=== PATIENT | male | born 1950 | race Caucasian/White ===

== ENCOUNTER 2017-04-18 07:45 | Observation (INO) | payer MEDICARE ==
[2017-04-18] MEDS ORDERED: SODIUM CHLORIDE 0.9% 1,000 ML IV STA (08:11)
[2017-04-18] MEDS ORDERED: NITROGLYCERIN SL TABS 0.4 MG TAB SUBLINGUAL STA ×3 (08:11)
[2017-04-18] MEDS ORDERED: ASPIRIN 81 MG CHEW PO STA (08:11)
--- NOTE | 2017-04-18 08:15 | ED ---
General Adult HPI - General Chief complaint: Chest Pain Stated complaint: Chest Pain Time Seen by Provider: 04/18/17 08:00 Source: patient, RN notes reviewed Mode of arrival: wheelchair Limitations: no limitations - History of Present Illness Initial comments: Patient is a pleasant 67-year-old male sitting to the emergency Department with chest discomfort. Patient has had some nausea vomiting diarrhea for the past couple of days. Patient has pressure in his chest that radiates to the shoulder and jaw and back. Onset was 1 AM. Patient does have associated dyspnea, nausea, and diaphoresis. No history of similar symptoms previously. Discomfort is moderate at this time. - Related Data Home Medications Medication Instructions Recorded Confirmed Ibuprofen [Advil] 200 mg PO Q6HR PRN 04/18/17 04/18/17 Pepto-Bismol Chew Tab 1 tab PO ONCE 04/18/17 04/18/17 Allergies Allergy/AdvReac Type Severity Reaction Status Date / Time povidone-iodine Allergy Anaphylaxis Verified 04/18/17 08:19 [From Betadine] soap [From Betadine] Allergy Anaphylaxis Verified 04/18/17 08:19 Review of Systems ROS Statement: Those systems with pertinent positive or pertinent negative responses have been documented in the HPI. ROS Other: All systems not noted in ROS Statement are negative. Constitutional: Denies: fever Eyes: Denies: eye pain ENT: Denies: ear pain Respiratory: Reports: dyspnea. Denies: cough Cardiovascular: Reports: chest pain Gastrointestinal: Reports: nausea, vomiting, diarrhea. Denies: abdominal pain Genitourinary: Denies: dysuria Musculoskeletal: Denies: back pain Skin: Denies: rash Neurological: Denies: weakness Past Medical History Additional Past Medical History / Comment(s): agent orange complication History of Any Multi-Drug Resistant Organisms: None Reported Past Surgical History: Hernia Repair, Orthopedic Surgery Additional Past Surgical History / Comment(s): throat surgery,eye lid Past Psychological History: No Psychological Hx Reported Smoking Status: Never smoker Past Alcohol Use History: Occasional Past Drug Use History: None Reported General Exam Limitations: no limitations General appearance: alert, in no apparent distress Head exam: Present: atraumatic Eye exam: Present: normal appearance, PERRL ENT exam: Present: normal oropharynx Neck exam: Present: normal inspection Respiratory exam: Present: normal lung sounds bilaterally. Absent: chest wall tenderness Cardiovascular Exam: Present: regular rate, normal rhythm Expanded Peripheral pulses: 2+: Radial (R), Radial (L), Dorsalis Pedis (R), Dorsalis Pedis (L) GI/Abdominal exam: Present: soft. Absent: distended, tenderness, guarding, rebound, rigid, pulsatile mass Extremities exam: Present: normal inspection. Absent: pedal edema, calf tenderness Neurological exam: Present: alert Psychiatric exam: Present: normal affect, normal mood Skin exam: Present: normal color Course Vital Signs 04/18/17 04/18/17 04/18/17 07:48 08:22 08:29 Temperature 97.1 F L Pulse Rate 78 80 87 Respiratory 18 16 18 Rate Blood Pressure 136/86 140/91 134/78 O2 Sat by Pulse 99 97 96 Oximetry 04/18/17 04/18/17 04/18/17 08:34 08:38 09:07 Temperature 97.7 F Pulse Rate 98 86 81 Respiratory 20 18 16 Rate Blood Pressure 98/58 119/72 142/82 O2 Sat by Pulse 95 96 97 Oximetry EKG Findings - EKG Comments: EKG Findings:: Normal sinus rhythm at 80. NE 150. QRS 102. QT 412. QTC 475. Normal axis. Normal QRS. Normal ST-T. Medical Decision Making - Medical Decision Making Patient reevaluated and resting in bed. Patient states discomfort is starting to come back. Patient family updated on results and plan. Case discussed in detail with Dr. Babb, who will admit for hospital call. - Lab Data Result diagrams: 04/18/17 08:14 04/18/17 08:14 Lab Results 04/18/17 04/18/17 04/18/17 Range/Units 08:14 08:14 08:14 WBC 10.9 H (3.8-10.6) k/uL RBC 5.69 (4.30-5.90) m/uL Hgb 18.0 H (13.0-17.5) gm/dL Hct 53.5 H (39.0-53.0) % MCV 94.0 (80.0-100.0) fL MCH 31.7 (25.0-35.0) pg MCHC 33.7 (31.0-37.0) g/dL RDW 14.1 (11.5-15.5) % Plt Count 363 (150-450) k/uL Neutrophils % 79 % Lymphocytes % 13 % Monocytes % 6 % Eosinophils % 1 % Basophils % 0 % Neutrophils # 8.6 H (1.3-7.7) k/uL Lymphocytes # 1.4 (1.0-4.8) k/uL Monocytes # 0.7 (0-1.0) k/uL Eosinophils # 0.1 (0-0.7) k/uL Basophils # 0.0 (0-0.2) k/uL PT (9.0-12.0) sec INR (<1.2) APTT (22.0-30.0) sec D-Dimer (<0.60) mg/L FEU Sodium 138 (137-145) mmol/L Potassium 3.9 (3.5-5.1) mmol/L Chloride 102 (98-107) mmol/L Carbon Dioxide 20 L (22-30) mmol/L Anion Gap 16 mmol/L BUN 17 (9-20) mg/dL Creatinine 0.84 (0.66-1.25) mg/dL Est GFR (MDRD) Af Amer >60 (>60 ml/min/1.73 sqM) Est GFR (MDRD) Non-Af >60 (>60 ml/min/1.73 sqM) Glucose 89 (74-99) mg/dL Calcium 10.2 (8.4-10.2) mg/dL Magnesium 1.7 (1.6-2.3) mg/dL Total Bilirubin 0.9 (0.2-1.3) mg/dL AST 24 (17-59) U/L ALT 40 (21-72) U/L Alkaline Phosphatase 86 (38-126) U/L Total Creatine Kinase 133 (55-170) U/L CK-MB (CK-2) 1.5 (0.0-2.4) ng/mL CK-MB (CK-2) Rel Index 1.1 Troponin I <0.012 (0.000-0.034) ng/mL Total Protein 7.6 (6.3-8.2) g/dL Albumin 4.6 (3.5-5.0) g/dL Amylase 64 (30-110) U/L Lipase 77 (23-300) U/L 04/18/17 Range/Units 08:14 WBC (3.8-10.6) k/uL RBC (4.30-5.90) m/uL Hgb (13.0-17.5) gm/dL Hct (39.0-53.0) % MCV (80.0-100.0) fL MCH (25.0-35.0) pg MCHC (31.0-37.0) g/dL RDW (11.5-15.5) % Plt Count (150-450) k/uL Neutrophils % % Lymphocytes % % Monocytes % % Eosinophils % % Basophils % % Neutrophils # (1.3-7.7) k/uL Lymphocytes # (1.0-4.8) k/uL Monocytes # (0-1.0) k/uL Eosinophils # (0-0.7) k/uL Basophils # (0-0.2) k/uL PT 11.6 (9.0-12.0) sec INR 1.2 H (<1.2) APTT 24.1 (22.0-30.0) sec D-Dimer 0.19 (<0.60) mg/L FEU Sodium (137-145) mmol/L Potassium (3.5-5.1) mmol/L Chloride (98-107) mmol/L Carbon Dioxide (22-30) mmol/L Anion Gap mmol/L BUN (9-20) mg/dL Creatinine (0.66-1.25) mg/dL Est GFR (MDRD) Af Amer (>60 ml/min/1.73 sqM) Est GFR (MDRD) Non-Af (>60 ml/min/1.73 sqM) Glucose (74-99) mg/dL Calcium (8.4-10.2) mg/dL Magnesium (1.6-2.3) mg/dL Total Bilirubin (0.2-1.3) mg/dL AST (17-59) U/L ALT (21-72) U/L Alkaline Phosphatase (38-126) U/L Total Creatine Kinase (55-170) U/L CK-MB (CK-2) (0.0-2.4) ng/mL CK-MB (CK-2) Rel Index Troponin I (0.000-0.034) ng/mL Total Protein (6.3-8.2) g/dL Albumin (3.5-5.0) g/dL Amylase (30-110) U/L Lipase (23-300) U/L - Radiology Data Radiology results: image reviewed (Scarring versus atelectasis left lung base) Critical Care Time Critical Care Time: Yes Total Critical Care Time: 32 Disposition Clinical Impression: Unstable angina pectoris Dis[facility] Referrals: None,Stated [Primary Care Provider] - 1-2 days Decision Time: 10:02
[2017-04-18 08:30] LABS: Basophils % (A) 0 %; CH 33.4; CHCM 35.7; Eosinophils # (A) 0.1 k/uL (0-0.7); Eosinophils % (A) 1 %; HCT 53.5 % (39.0-53.0); HDW 2.77; Luc # (Auto) 0.16; Luc % (Auto) 1; Lymphocytes # (A) 1.4 k/uL (1.0-4.8); Lymphocytes % (A) 13 %; MCH 31.7 pg (25.0-35.0); MCHC 33.7 g/dL (31.0-37.0); Monocytes # (A) 0.7 k/uL (0-1.0); Monocytes % (A) 6 %; Neutrophils # (A) 8.6 k/uL (1.3-7.7); Neutrophils % (A) 79 %; RBC 5.69 m/uL (4.30-5.90); RDW 14.1 % (11.5-15.5); WBC 10.9 k/uL (3.8-10.6); WBC (Perox) 11.39
[2017-04-18 08:46] LABS: ALT 40 U/L (21-72); AST 24 U/L (17-59); Alkaline Phosphatase 86 U/L (38-126); Amylase 64 U/L (30-110); Anion Gap 16 mmol/L; Blood Urea Nitrogen 17 mg/dL (9-20); Calcium 10.2 mg/dL (8.4-10.2); Carbon Dioxide 20 mmol/L (22-30); Chloride 102 mmol/L (98-107); Glucose 89 mg/dL (74-99); Magnesium 1.7 mg/dL (1.6-2.3); Non-African American GFR(MDRD) >60 (>60 ml/min/1.73 sqM); Potassium 3.9 mmol/L (3.5-5.1); Sodium 138 mmol/L (137-145); Total Bilirubin 0.9 mg/dL (0.2-1.3); Total Protein 7.6 g/dL (6.3-8.2)
[2017-04-18 08:49] LABS: INR 1.2 (<1.2); Partial Thromboplastin Time 24.1 sec (22.0-30.0); Prothrombin Time 11.6 sec (9.0-12.0)
--- NOTE | 2017-04-18 08:56 | XR ---
EXAMINATION TYPE: XR chest 2V DATE OF EXAM: 04/18/2017 HISTORY: Chest Pain. REFERENCE: NONE. FINDINGS: There is minimal scarring or atelectasis at the left lung base. The lungs are otherwise cheri ar. Pleural spaces are clear. The heart is not enlarged. IMPRESSION: SCARRING VERSUS ATELECTASIS, LEFT LUNG BASE.
[2017-04-18 08:59] LABS: Creatine Kinase 133 U/L (55-170)
[2017-04-18 09:10] LABS: Creatine Kinase MB 1.5 ng/mL (0.0-2.4); Troponin I <0.012 ng/mL (0.000-0.034)
[2017-04-18] MEDS ORDERED: MORPHINE SULFATE 4 MG/ML SYRINGE IV STA (10:01)
[2017-04-18] MEDS ORDERED: NITROGLYCERIN SL TABS 0.4 MG TAB SUBLINGUAL PRN (10:03)
[2017-04-18] MEDS ORDERED: HEPARIN SODIUM,PORCINE 5,000 UNIT/ML 1 ML VIAL IV ONE (10:03)
[2017-04-18] MEDS ORDERED: HEPARIN SODIUM,PORCINE 5,000 UNIT/ML 1 ML VIAL IV PRN (10:03)
[2017-04-18] MEDS ORDERED: ONDANSETRON 4 MG/2 ML VIAL IVP STA (10:13)
[2017-04-18] MEDS: HEPARIN SODIUM,PORCINE/D5W PMX 25,000 UNIT in DEXTROSE/WATER 1 500ML.BAG IV SCH (10:32)
[2017-04-18] MEDS: NITROGLYCERIN OINT 1 INCH/GM PACKET TOPICAL SCH ×3 (13:54→23:44)
[2017-04-18] MEDS ORDERED: MORPHINE SULFATE 4 MG/ML SYRINGE IVP PRN (14:19)
[2017-04-18 15:05] LABS: Creatine Kinase 108 U/L (55-170)
[2017-04-18 15:15] LABS: Creatine Kinase MB 1.1 ng/mL (0.0-2.4); Troponin I <0.012 ng/mL (0.000-0.034)
[2017-04-18] MEDS ORDERED: ACETAMINOPHEN TAB 325 MG TAB PO PRN (17:48)
[2017-04-18 18:05] LABS: Amorphous Sediment,Urine Rare /hpf; Appearance,Urine Clear (Clear); Bilirubin,Urine Negative (Negative); Glucose,Urine (UA) Negative (Negative); Ketones,Urine 3+ (Negative); Leukocyte Esterase,Urine Negative (Negative); Mucus,Urine Few /hpf; Nitrite,Urine Negative (Negative); PH, Urine 5.5 (5.0-8.0); Particle Count 3604; Protein,Urine 1+ (Negative); RBC,Urine 1 /hpf (0-5); Specific Gravity,Urine 1.024 (1.001-1.035); Squamous Epithelial Cell,Urine 3 /hpf (0-4); UA Billing (MACRO vs. MICRO) MICRO; Urobilinogen,Urine <2.0 mg/dL (<2.0); WBC,Urine 1 /hpf (0-5)
[2017-04-18] MEDS ORDERED: CYCLOBENZAPRINE 10 MG TAB PO PRN (19:30)
[2017-04-18] MEDS ORDERED: ZOLPIDEM 5 MG TAB PO PRN (19:31)
[2017-04-18] MEDS ORDERED: HYDROmorphone 1 MG/ML 1 ML SYRINGE IVP PRN ×2 (19:31→23:20)
[2017-04-18 21:09] LABS: Creatine Kinase 144 U/L (55-170)
[2017-04-18 21:21] LABS: Creatine Kinase MB 1.5 ng/mL (0.0-2.4); Troponin I <0.012 ng/mL (0.000-0.034)
[2017-04-18] MEDS: HYDROcodone/APAP 5-325MG 1 EACH TAB PO PRN (21:58)
[2017-04-18] MEDS ORDERED: RX INFO: IV CONTRAST WAS GIVEN 1 EACH MISC MISCELLANE PRN (23:15)
[2017-04-18] MEDS ORDERED: diphenhydrAMINE 50 MG/ML 1 ML VIAL IVP STA (23:19)
[2017-04-18] MEDS ORDERED: FAMOTIDINE 20 MG/2 ML VIAL IV STA (23:19)
[2017-04-18] MEDS ORDERED: methylPREDNISolone SOD SUCCI 125 MG/2 ML VIAL IV STA (23:19)
[2017-04-18] MEDS ORDERED: HYDROmorphone 2 MG/ML 1 ML SYRINGE IVP PRN (23:20)
--- NOTE | 2017-04-19 00:53 | CT ---
EXAM: CT Chest With Intravenous Contrast CLINICAL HISTORY: Back and chest pain TECHNIQUE: Axial computed tomography images of the chest with intravenous contrast. CTDI is 19.00 mGy and DLP is 705.90 mGy-cm. This CT exam was performed using one or more of the following dose reduction techniques: automated exposure control, adjustment of the mA and/or kV according to patient size, and/or use of iterative reconstruction technique. CONTRAST: 100 mL of Omni 300 administered intravenously. COMPARISON: None FINDINGS: Lungs: Low lung volumes with hypoventilatory changes. Bilateral lower lobe dependent subsegmental atelectasis. No acute parenchymal lung disease. Pleural space: Unremarkable. No pneumothorax. No significant effusion. Heart: Unremarkable. No cardiomegaly. No significant pericardial effusion. Thyroid: There are 2 tiny cystic lesions within the right lobe of the thyroid gland. Bones/joints: Severe C7-T1 disc degeneration. No acute fracture. No dislocation. Soft tissues: Unremarkable. Vasculature: Unremarkable. No thoracic aortic aneurysm. Lymph nodes: Unremarkable. No enlarged lymph nodes. IMPRESSION: Unremarkable CT scan of the chest. No acute parenchymal lung abnormalities. No abnormalities found to explain chest pain. 2 tiny cystic lesions within the right lobe of the thyroid gland. Nonemergent ultrasound of the thyroid gland recommended for further evaluation. EXAM: CT Abdomen and Pelvis With Intravenous Contrast CLINICAL HISTORY: Back and chest pain TECHNIQUE: Axial computed tomography images of the abdomen and pelvis with intravenous contrast. CTDI is 16.90 mGy and DLP is 1203.10 mGy-cm. This CT exam was performed using one or more of the following dose reduction techniques: automated exposure control, adjustment of the mA and/or kV according to patient size, and/or use of iterative reconstruction technique. CONTRAST: 100 mL of Omni 300 administered intravenously. COMPARISON: None FINDINGS: Lower thorax: No acute findings. ABDOMEN: Liver: 1.7 cm low-density lesion within the right hepatic lobe, with irregular margins. This could represent a cyst or hemangioma. Gallbladder and bile ducts: Unremarkable. No calcified stones. No ductal dilation. Pancreas: Unremarkable. No mass. No ductal dilation. Spleen: Unremarkable. No splenomegaly. Adrenals: Unremarkable. No mass. Kidneys and ureters: Left upper pole peripelvic renal cyst measuring 3. 3 cm. Right lower pole exophytic renal cyst measuring 1.4 cm. Bilaterally, there is no hydronephrosis. Stomach and bowel: Descending and sigmoid colon diverticulosis. Mild inflammation around a proximal sigmoid diverticulum, compatible with mild, acute diverticulitis. No diverticular abscess or perforation. No obstruction. Appendix: No findings to suggest acute appendicitis. PELVIS: Bladder: Unremarkable. No mass. Reproductive: Unremarkable as visualized. ABDOMEN and PELVIS: Intraperitoneal space: Unremarkable. No free air. No significant fluid collection. Bones/joints: Minimal retrolisthesis of L2 on L3 with moderate disc degeneration. No acute fracture. No dislocation. Soft tissues: Unremarkable. Vasculature: Unremarkable. No abdominal aortic aneurysm. Lymph nodes: Unremarkable. No enlarged lymph nodes. IMPRESSION: 1. Mild, acute sigmoid diverticulitis. No diverticular abscess or perforation. 2. A 1.7 cm right hepatic cyst versus hemangioma. 3. Left upper pole 3.3 cm peripelvic renal cyst. 1.4 cm right lower pole exophytic renal cyst.
[2017-04-19] MEDS ORDERED: SODIUM CHLORIDE 0.9% 1,000 ML IV SCH (01:00)
[2017-04-19] MEDS: HYDROcodone/APAP 5-325MG 1 EACH TAB PO PRN (02:48)
[2017-04-19] MEDS: NITROGLYCERIN OINT 1 INCH/GM PACKET TOPICAL SCH ×2 (05:54→13:18)
[2017-04-19 07:10] LABS: Mean Platelet Volume 7.4
[2017-04-19 07:15] LABS: Cholesterol 102 mg/dL (<200); HDL Cholesterol 38 mg/dL (40-60)
[2017-04-19 07:34] VITALS: RESP 17
--- NOTE | 2017-04-19 08:17 | CONS ---
Demond Guardado is a 67 year old gentleman, resident of [place], visiting family here. For the last two days, he has been having nausea, vomiting, diarrhea and felt dehydrated, exhausted and this morning had some discomfort in the chest, very atypical, nondescript. There is some tenderness in the anterior chest wall. With these symptoms, he came into the emergency room, he has been placed on heparin and hospitalized. Initial troponin is normal. EKG is unremarkable. His diarrhea has resolved. Nausea seems to have improved. PAST MEDICAL HISTORY: Unremarkable for any hypertension, diabetes, myocardial infarction or CVA. Review of systems unremarkable other than the above mentioned facts. On examination, blood pressure is 120/70. Pulse rate is about 78 per minute. There are some orthostatic changes suggestive of hypovolemia. HEENT: Unremarkable. Fundus was not examined by me. Neck is supple. There is no JVD. I do not hear a carotid bruit. Heart exam reveals S1, S2 heard normally. No rub, murmur or gallop. Lungs are clear. Abdomen is soft, nontender. Lower extremities revealed normal pulses. No edema. Central nervous system grossly no focal deficits. EKG revealed sinus mechanism, no acute changes. IMPRESSION: 1. Atypical chest pain. 2. Nausea, vomiting, diarrhea, probably some gastroenteritis. 3. No major risk factors for coronary artery disease. RECOMMENDATIONS: The pain appears to be atypical. The patient is dehydrated. We will hydrate him, perform serial troponins and EKGs and based on this, I will make further recommendations. Discussed my thoughts in detail with the patient and . Thank you very much for the consultation. BIB
[2017-04-19] MEDS ORDERED: ASPIRIN 325 MG TAB PO SCH (09:00)
--- NOTE | 2017-04-19 10:49 | ECHOF ---
Referral Reason:chest pain MEASUREMENTS -------- HEIGHT: 182.9 cm WEIGHT: 97.5 kg BP: RVIDd: 2.7 cm (< 3.3) IVSd: 1.3 cm (0.6 - 1.1) LVIDd: 4.6 cm (3.9 - 5.3) LVPWd: 1.2 cm (0.6 - 1.1) IVSs: 1.7 cm LVIDs: 3.3 cm LVPWs: 1.5 cm LA Diam: 3.7 cm (2.7 - 3.8) LAESV Index (A-L): 24.68 ml/m Ao Diam: 3.4 cm (2.0 - 3.7) AV Cusp: 2.3 cm (1.5 - 2.6) LA Diam: 4.1 cm (2.7 - 3.8) MV EXCURSION: 19.132 mm (> 18.000) MV EF SLOPE: 91 mm/s (70 - 150) EPSS: 0.9 cm MV E Yossi: 0.46 m/s MV DecT: 158 ms MV A Yossi: 0.65 m/s MV E/A Ratio: 0.70 FINDINGS -------- Sinus rhythm. This was a technically adequate study. The left ventricular size is normal. There is mild concentric left ventricular hypertrophy. Overall left ventricular systolic function is normal with, an EF between 55 - 60 %. The right ventricle is normal in size. Normal LA size by volume 22+/-6 ml/m2. The right atrial size is normal. The aortic valve is trileaflet and appears structurally normal. There is no evidence of aortic regurgitation. The mitral valve leaflets are mildly thickened. Mild mitral regurgitation is present. Mild tricuspid regurgitation present. There is no evidence of pulmonary hypertension. The right ventricular systolic pressure, as measured by Doppler, is {RVSP}. There is no pulmonic regurgitation present. The aortic root size is normal. There is no pericardial effusion. CONCLUSIONS -------- 1. This was a technically adequate study. 2. There is no pulmonic regurgitation present. 3. There is no pericardial effusion. 4. There is mild concentric left ventricular hypertrophy. 5. Overall left ventricular systolic function is normal with, an EF between 55 - 60 %. 6. Normal LA size by volume 22+/-6 ml/m2. 7. The aortic valve is trileaflet and appears structurally normal. 8. The mitral valve leaflets are mildly thickened. 9. Mild mitral regurgitation is present. 10. Mild tricuspid regurgitation present. 11. There is no evidence of pulmonary hypertension. [employer] SUPERVISOR: Deborah Vazquez RDCS
[2017-04-19 11:24] VITALS: BP 108/65; PULSE 87; TEMP 97.6
--- NOTE | 2017-04-19 12:51 | HP ---
CHIEF COMPLAINT: 67 year old white male with chest pain. HISTORY OF PRESENT ILLNESS: This 67 year old white male with some chest discomfort, nausea, vomiting, diarrhea, pain was extreme radiating to shoulder joint and back. States he had a cardiac workup two to three years ago which was normal. He has history of agent orange exposure where he has severe muscle spasms and severe back pain that intermittently comes and goes over time. He is complaining of severe pain at this time. He has ibuprofen and Pepto Bismol at home. ALLERGIES: IODINE FROM BETADINE. 14 point review of systems negative except for mentioned in HPI. 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 No smoking, no alcohol. 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 PHYSICAL EXAM: Vital signs stable. Afebrile. Cardiovascular: S1, S2. Lungs clear. GI: Soft. Musculoskeletal: Tender to palpation thoracic lumbar spine. Spinal muscles, hematological negative Homans. Vascular: Lumbar dorsalis pedis, posterior tibial and radial pulses. Ophthalmological: Pupils equal, round and reactive to light and accommodation. Neurological: Alert and oriented times three. Blood pressure 130s to 140s over 80s to 90s. O2 96 to 99%. Temp 97.1. Respiratory rate 16-18, ( ). Skin: Normal color. White count 10.9, hemoglobin 18, hematocrit 53. Troponins negative. ASSESSMENT: As stated above, angina pectoris, atypical, severe back pain, not much response to pain medicines. We will do a CT scan of the abdomen and chest. Muscle relaxers will be given. Morphine will be discontinued. It is not working. We will start Dilaudid. MTDD
[2017-04-19] MEDS: HEPARIN SODIUM,PORCINE/D5W PMX 25,000 UNIT in DEXTROSE/WATER 1 500ML.BAG IV SCH (13:18)
--- NOTE | 2017-04-19 14:41 | PN ---
Mr. Guardado is doing well, has no further chest pain. His vital signs are stable. His dehydration has resolved. He has no orthostatic changes. He is eating is food normally. Vital signs are stable, S1, S2, heard normally. Lungs are clear. Abdomen and lower extremities are unchanged. Plan is to increase activity and discharge him and he can be followed up by his primary care physician and he is planning on returning to [place]. He does not require any follow up here and will have further testing in [place]. BIB
--- NOTE | 2017-04-24 12:11 | PN ---
SUBJECTIVE: A 67-year-old white male admitted with acute diverticulitis. Neurology has ordered a MRI of the cervical and lumbar spine which are not back at this time. The nurse last night gave him and overdose of Dilaudid which caused respiratory distress, improved with Narcan x2. CARDIOVASCULAR: S1, S2. Lungs are clear. GI is soft. MUSCULOSKELETAL: Multiple tender points over the cervical and lumbar spinal muscles and thoracic spine muscles. ASSESSMENT: 1. Possible fibromyalgia. 2. Cervical and lumbar disc disease. 3. Acute diverticulitis. 4. Obesity. 5. Agent orange exposure. 6. Multiple medical conditions. PLAN: Dilaudid is discontinued due to respiratory distress caused by nurse. Due to diverticulitis, would advance the diet as tolerated. Neurologic workup per Dr. Pretty is pending. Please see further orders. MTDD
== END 2017-04-19 14:40 | disposition home or self-care (01) ==
LOC: EC 07:45 → 3OBS 10:04
PROVIDERS: ADMIT Family Medicine; ATTEND Family Medicine
DX: I20.9 Angina pectoris, unspecified (principal); M54.9 Dorsalgia, unspecified; R07.9 Chest pain, unspecified; R11.2 Nausea with vomiting, unspecified; M62.838 Other muscle spasm; K57.92 Diverticulitis of intestine, part unspecified, without perforation or abscess without bleeding; R06.00 Dyspnea, unspecified; M51.9 Unspecified thoracic, thoracolumbar and lumbosacral intervertebral disc disorder; E66.9 Obesity, unspecified
CPT/HCPCS: 96376 ×4; 96365 ×2; 99291 ×2; 96361 ×3; 96366; 96375; 36415; 93005; 93306; 85379; 80061; 80053; 82150; 82550; 82553; 83690; 83735; 84484; 85025; 85049; 85610; 85730 ×2; 81001; 71020; 71260; 74177; G0378 ×2; J2270; J1170 ×2; J1200; J1644 ×2; J2930; J2405; Q9967

== ENCOUNTER 2017-04-20 18:18 | Inpatient (IN) | payer MEDICARE ==
[2017-04-20] MEDS ORDERED: SODIUM CHLORIDE 0.9% 1,000 ML IV STA (19:04)
[2017-04-20] MEDS ORDERED: metroNIDAZOLE-NS PMX 500 MG in SALINE 1 100ML.BAG IVPB STA (19:04)
[2017-04-20] MEDS ORDERED: LEVOFLOXACIN 500MG-D5W PMX 500 MG in DEXTROSE/WATER 1 100ML.BAG IVPB STA (19:04)
[2017-04-20 19:40] LABS: Basophils # (A) 0.1 k/uL (0-0.2); Basophils % (A) 0 %; CH 32.8; CHCM 35.7; Eosinophils # (A) 0.1 k/uL (0-0.7); Eosinophils % (A) 1 %; HCT 48.4 % (39.0-53.0); HDW 2.84; HGB 16.9 gm/dL (13.0-17.5); Luc # (Auto) 0.19; Luc % (Auto) 2; Lymphocytes # (A) 1.9 k/uL (1.0-4.8); Lymphocytes % (A) 16 %; MCH 32.2 pg (25.0-35.0); MCHC 34.9 g/dL (31.0-37.0); MCV 92.4 fL (80.0-100.0); Mean Platelet Volume 7.4; Monocytes # (A) 0.8 k/uL (0-1.0); Monocytes % (A) 7 %; Neutrophils # (A) 8.5 k/uL (1.3-7.7); Neutrophils % (A) 74 %; RBC 5.24 m/uL (4.30-5.90); RDW 13.9 % (11.5-15.5); WBC 11.6 k/uL (3.8-10.6); WBC (Perox) 11.71
[2017-04-20 19:49] LABS: Appearance,Urine Clear (Clear); Bilirubin,Urine Negative (Negative); Glucose,Urine (UA) Negative (Negative); Ketones,Urine 1+ (Negative); Leukocyte Esterase,Urine Negative (Negative); Nitrite,Urine Negative (Negative); PH, Urine 5.5 (5.0-8.0); Protein,Urine Trace (Negative); Specific Gravity,Urine 1.018 (1.001-1.035); UA Billing (MACRO vs. MICRO) CHEM; Urobilinogen,Urine <2.0 mg/dL (<2.0)
[2017-04-20 19:51] LABS: ALT 93 U/L (21-72); AST 72 U/L (17-59); Alkaline Phosphatase 98 U/L (38-126); Anion Gap 14 mmol/L; Blood Urea Nitrogen 20 mg/dL (9-20); Calcium 9.9 mg/dL (8.4-10.2); Carbon Dioxide 24 mmol/L (22-30); Chloride 102 mmol/L (98-107); Glucose 82 mg/dL (74-99); Non-African American GFR(MDRD) >60 (>60 ml/min/1.73 sqM); Potassium 3.9 mmol/L (3.5-5.1); Sodium 140 mmol/L (137-145); Total Bilirubin 0.7 mg/dL (0.2-1.3); Total Protein 7.4 g/dL (6.3-8.2)
[2017-04-20] MEDS ORDERED: ACETAMINOPHEN TAB 325 MG TAB PO PRN (20:02)
[2017-04-20] MEDS ORDERED: NALOXONE 0.4 MG/ML 1 ML VIAL IV PRN (20:02)
--- NOTE | 2017-04-20 20:02 | ED ---
General Adult HPI - General Chief complaint: Back Pain/Injury Stated complaint: back pain Time Seen by Provider: 04/20/17 18:31 Source: patient, EMS, RN notes reviewed, old records reviewed Mode of arrival: EMS Limitations: no limitations - History of Present Illness Initial comments: She is 67-year-old, who presents emergency room today by EMS, the patient does have multiple complaints. He does admit that he was recently seen discussed discharged home yesterday for diverticulitis. He states he was admitted for chest pain and diverticulitis. He states he was having ultrasound echocardiogram on his heart and when he rolled over felt a pop in his back yesterday approximately 3:30 in the afternoon. Patient does admit that since that time he's been having increased pain in both the upper and lower extremities. He admits to numbness and tingling both areas. He denies any bowel or bladder incontinence or retention. Denies any saddle anesthesia. Does admit that he's been having increased back pain since that time. Patient does admit that he try to go see a chiropractor today. He states he is advised come back here to the emergency room for further evaluation. Also missed some blurry vision at times. States some numbness tingling to the upper extremities , lower extremities and around his lips. He states still having some pain to the lower abdomen. Patient denies any recent fever, chills, shortness of breath , chest pain, dysuria or hematuria, constipation or diarrhea, headaches. - Related Data Home Medications Medication Instructions Recorded Confirmed Ibuprofen [Advil] 400 mg PO Q6HR PRN 04/18/17 04/20/17 Allergies Allergy/AdvReac Type Severity Reaction Status Date / Time povidone-iodine Allergy Anaphylaxis Verified 04/20/17 19:13 [From Betadine] soap [From Betadine] Allergy Anaphylaxis Verified 04/20/17 19:13 Review of Systems ROS Statement: Those systems with pertinent positive or pertinent negative responses have been documented in the HPI. ROS Other: All systems not noted in ROS Statement are negative. Past Medical History Past Medical History: Asthma, Fibromyalgia, GERD/Reflux, Hyperlipidemia, Osteoarthritis (OA), Pneumonia Additional Past Medical History / Comment(s): agent orange exposure/ complications, connective tissue disease-undifferentiated, leg weakness, neuropathy bilateral feet, arthritis multiple joints, stomach inflamation, cholesterol alittle elevated but not on rx for it yet-watching diet, fibromyalgia, muscle spasms, colon polyps-benign, asthma-remote, History of Any Multi-Drug Resistant Organisms: None Reported Past Surgical History: Hernia Repair, Orthopedic Surgery Additional Past Surgical History / Comment(s): Surgery for Schatzki ring 3 weeks ago, EGD/colonoscopy with benign polyps removed, vein bundle in back of throat removed, bilateral blepharoplasty, bilateral inguinal hernia repairs, L elbow ulnar nerve moved and bone scraped, L wrist carpal tunnel release, surgery for dupuytrens L hand, 2004 or 2005 cardiac cath-normal in [place], Past Anesthesia/Blood Transfusion Reactions: Postoperative Nausea & Vomiting ( PONV) Additional Past Anesthesia/Blood Transfusion Reaction / Comment(s): PONV after blepharoplasty. Past Psychological History: No Psychological Hx Reported Smoking Status: Former smoker - Past Family History Father Family Medical History: Cancer, Musculoskeletal Disorder, Neurologic Disorder Additional Family Medical History / Comment(s): Father had parkinson's disease. He at the age of 72 yrs from cancer in his bones. Mother Family Medical History: Cancer Additional Family Medical History / Comment(s): Mother of pancreatic cancer at the age of 67 or 68yrs. General Exam - General Exam Comments Initial Comments: General: The patient is awake and alert, in no distress, and does not appear acutely ill. Eye: Pupils are equal, round and reactive to light, extra-ocular movements are intact. No nystagmus. There is normal conjunctiva bilaterally. No signs of icterus. Ears, nose, mouth and throat: There are moist mucous membranes and no oral lesions. Neck: The neck is supple, there is no tenderness or JVD. Cardiovascular: There is a regular rate and rhythm. No murmur, rub or gallop is appreciated. Respiratory: Lungs are clear to auscultation, respirations are non-labored, breath sounds are equal. No wheezes, stridor, rales, or rhonchi. Gastrointestinal: Soft, non-distended, non-tender abdomen without masses or organomegaly noted. There is no rebound or guarding present. No CVA tenderness. Bowel sounds are unremarkable. Musculoskeletal: Normal ROM, no tenderness. Strength 5/5. Sensation intact. Pulses equal bilaterally 2+. Neurological: A&O x 3. CN II-XII intact, There are no obvious motor or sensory deficits. Coordination appears grossly intact. Speech is normal. Skin: Skin is warm and dry and no rashes or lesions are noted. Psychiatric: Cooperative, appropriate mood & affect, normal judgment. : Normal rectal tone Limitations: no limitations Course Vital Signs 04/20/17 18:28 Temperature 97 F L Pulse Rate 85 Respiratory 18 Rate Blood Pressure 132/88 O2 Sat by Pulse 97 Oximetry Medical Decision Making - Lab Data Result diagrams: 04/20/17 19:23 Lab Results 04/20/17 04/20/17 Range/Units 19:23 19:30 WBC 11.6 H (3.8-10.6) k/uL RBC 5.24 (4.30-5.90) m/uL Hgb 16.9 (13.0-17.5) gm/dL Hct 48.4 (39.0-53.0) % MCV 92.4 (80.0-100.0) fL MCH 32.2 (25.0-35.0) pg MCHC 34.9 (31.0-37.0) g/dL RDW 13.9 (11.5-15.5) % Plt Count 348 (150-450) k/uL Neutrophils % 74 % Lymphocytes % 16 % Monocytes % 7 % Eosinophils % 1 % Basophils % 0 % Neutrophils # 8.5 H (1.3-7.7) k/uL Lymphocytes # 1.9 (1.0-4.8) k/uL Monocytes # 0.8 (0-1.0) k/uL Eosinophils # 0.1 (0-0.7) k/uL Basophils # 0.1 (0-0.2) k/uL Urine Color Yellow Urine Appearance Clear (Clear) Urine pH 5.5 (5.0-8.0) Ur Specific [place] 1.018 (1.001-1.035) Urine Protein Trace H (Negative) Urine Glucose (UA) Negative (Negative) Urine Ketones 1+ H (Negative) Urine Blood Negative (Negative) Urine Nitrite Negative (Negative) Urine Bilirubin Negative (Negative) Urine Urobilinogen <2.0 (<2.0) mg/dL Ur Leukocyte Esterase Negative (Negative) Disposition Clinical Impression: Diverticulitis, Intractable back pain, Paresthesia Disposition: ADMITTED IP TO THIS [facility] Condition: Stable Referrals: Nonstaff,Physician [Primary Care Provider] - 1-2 days Time of Disposition: 20:02
--- NOTE | 2017-04-20 20:29 | CT ---
EXAMINATION TYPE: CT brain simran romo DATE OF EXAM: 04/20/2017 COMPARISON: NONE HISTORY: Lower neck pain and headache with finger and arm numbness CT DLP: 2180 mGycm Automated exposure control for dose reduction was used. TECHNIQUE: CT scan of the head and cervical spine are performed without contrast. FINDINGS: There is mild cerebral cortical atrophy. There is no mass effect nor midline shift. There is no sign of intracranial hemorrhage. The calvarium is intact. Cervical vertebra have normal alignment. There is moderate posterior endplate spur formation and calc ification at its levels from C4 to C7. There is thickening of the posterior longitudinal ligament. Th ere is degenerative disc space narrowing from C4 to T1. Facet joints are intact. Skull base is intact . I see no bony destructive process. IMPRESSION: Mild atrophy. No acute intracranial abnormality. Multilevel spondylosis. No fracture. 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 There is more extensive calcification on the right side. No fracture.
[2017-04-20] MEDS: HYDROcodone/APAP 5-325MG 1 EACH TAB PO PRN (20:56)
[2017-04-20] MEDS: HYDROmorphone 1 MG/ML 1 ML SYRINGE IV PRN (22:44)
[2017-04-20] MEDS: FAMOTIDINE 20 MG TAB PO SCH (22:45)
[2017-04-20] MEDS: MELATONIN 3 MG TABLET PO PRN (23:14)
[2017-04-21] MEDS: CYCLOBENZAPRINE 10 MG TAB PO PRN ×2 (00:37→22:46)
[2017-04-21] MEDS: HYDROcodone/APAP 5-325MG 1 EACH TAB PO PRN ×3 (01:07→14:58)
[2017-04-21] MEDS: metroNIDAZOLE-NS PMX 500 MG in SALINE 1 100ML.BAG IVPB SCH ×3 (01:24→16:07)
[2017-04-21] MEDS: HYDROmorphone 1 MG/ML 1 ML SYRINGE IV PRN ×5 (02:02→20:25)
[2017-04-21] MEDS: LORazepam 2 MG/ML SYRINGE IV PRN (03:18)
[2017-04-21] MEDS: FAMOTIDINE 20 MG TAB PO SCH ×2 (07:36→20:26)
[2017-04-21 09:09] VITALS: BMI 29.7
[2017-04-21 09:22] LABS: Basophils % (A) 0 %; CH 33.3; CHCM 34.9; Eosinophils % (A) 0 %; HCT 45.3 % (39.0-53.0); HDW 2.79; HGB 15.4 gm/dL (13.0-17.5); Luc # (Auto) 0.15; Luc % (Auto) 2; Lymphocytes # (A) 0.9 k/uL (1.0-4.8); Lymphocytes % (A) 9 %; MCH 32.7 pg (25.0-35.0); MCHC 34.1 g/dL (31.0-37.0); Mean Platelet Volume 8.1; Monocytes # (A) 0.7 k/uL (0-1.0); Monocytes % (A) 7 %; Neutrophils # (A) 8.5 k/uL (1.3-7.7); Neutrophils % (A) 82 %; RBC 4.72 m/uL (4.30-5.90); RDW 14.5 % (11.5-15.5); WBC 10.3 k/uL (3.8-10.6); WBC (Perox) 9.65
[2017-04-21 09:34] LABS: ALT 76 U/L (21-72); AST 45 U/L (17-59); Alkaline Phosphatase 81 U/L (38-126); Anion Gap 10 mmol/L; Blood Urea Nitrogen 14 mg/dL (9-20); Calcium 8.9 mg/dL (8.4-10.2); Carbon Dioxide 25 mmol/L (22-30); Chloride 100 mmol/L (98-107); Glucose 104 mg/dL (74-99); Non-African American GFR(MDRD) >60 (>60 ml/min/1.73 sqM); Sodium 135 mmol/L (137-145); Total Bilirubin 0.7 mg/dL (0.2-1.3); Total Protein 6.5 g/dL (6.3-8.2)
--- NOTE | 2017-04-21 14:12 | MR ---
EXAMINATION TYPE: MR brain wo con DATE OF EXAM: 04/21/2017 2:05 PM COMPARISON: NONE HISTORY: intractable back pain, paresthesia with arm and leg pain FINDINGS: The ventricles, basal cisterns and sulci overlying the cerebral convexities are mildly enlarged. There is evidence of mild periventricular white matter ischemic demyelination. Remote deep white matter insults are also noted. No acute edema is seen on diffusion weighted imaging. There is no evidence for midline shift or mass effect. Acute intracranial hemorrhage or extra-axial collection is not evident. The paranasal sinuses and mastoid air cells are well-aerated. IMPRESSION: Age-related atrophic and chronic small vessel ischemic change. No acute intracranial process at this time.
--- NOTE | 2017-04-21 15:34 | P.CNNES ---
History of Present Illness Consult date: 04/21/17 Reason for Consult: Patient with intractable back pain. History of Present Illness: This patient is a 67-year-old right-handed white male who was admitted to hospital today with symptoms of severe intractable back pain. Patient states he was just discharged from the hospital last Monday. He was in the hospital for evaluation of abdominal pain. He was found to have evidence of diverticulitis. Patient states that on T2 stay of this past week he was undergoing an echocardiogram. Apparently he was on a table and the attendant help desk technician rotated him into position to do the echocardiogram and he heard a snap in his back. He complained of severe pain following this maneuver. Apparently he was discharged from the hospital and was given some pain medication. The patient states that he has been having worsening pain mostly in the mid thoracic region of the spine where he heard the snap and pop occur during his echocardiogram. He has been experiencing increasing symptoms of weakness in his shoulder muscles as well as his leg muscles. He complains of paresthesias in both arms and legs. He also states that his right shoulder is quite weak and he feels there may be some injury to the right shoulder as well. Apparently after discharge from the hospital earlier this week he saw his chiropractor who suggested he should be rechecked for all of his symptoms. The patient does have multiple medical complaints. He states he has numbness in the arms and feet. He complains of neck pain radiating into his upper arms and shoulders. He describes paresthesias in both his fingertips and in his bottoms of his feet. He is originally from [place] and is only visiting family members locally. He states he did not have these symptoms prior to Monday when he heard the back going out. Orthopedic spine surgery has been consulted to further evaluate the patient. In the emergency room he was seen by Dr. Ni in his computed tomography scan of the brain and cervical spine was completed. CAT scan of the brain revealed mild atrophy with no other acute abnormality. He also had CT of the cervical spine which revealed multiple level spondylosis. There was perforation and spinal stenosis from C4 through C7. No acute fracture was seen. We are recommending orthopedic spine surgery to further evaluate the patient. We are recommending an MRI of the thoracic and cervical spine to be done. Also recommend MRI of the brain to rule out demyelinating disease. This patient has multiple complex medical symptoms and complaints at this time. We will await further recommendations from multiple other specialists regarding his current workup. His overall prognosis at this time remains guarded. Neurology is now been consulted for further evaluation and recommendations. Review of Systems Constitutional: Denies chills, Denies fever Eyes: denies blurred vision, denies pain Ears, nose, mouth and throat: Denies headache, Denies sore throat Cardiovascular: Denies chest pain, Denies shortness of breath Respiratory: Denies cough Gastrointestinal: Denies abdominal pain, Denies diarrhea, Denies nausea, Denies vomiting Musculoskeletal: Denies myalgias Integumentary: Denies pruritus, Denies rash Neurological: Denies numbness, Denies weakness Psychiatric: Denies anxiety, Denies depression Endocrine: Denies fatigue, Denies weight change Past Medical History Past Medical History: Asthma, Fibromyalgia, GERD/Reflux, Hyperlipidemia, Osteoarthritis (OA), Pneumonia Additional Past Medical History / Comment(s): agent orange exposure/ complications, connective tissue disease-undifferentiated, leg weakness, neuropathy bilateral feet, arthritis multiple joints, stomach inflamation, cholesterol alittle elevated but not on rx for it yet-watching diet, fibromyalgia, muscle spasms, colon polyps-benign, asthma-remote, History of Any Multi-Drug Resistant Organisms: None Reported Past Surgical History: Hernia Repair, Orthopedic Surgery Additional Past Surgical History / Comment(s): Surgery for Schatzki ring 3 weeks ago, EGD/colonoscopy with benign polyps removed, vein bundle in back of throat removed, bilateral blepharoplasty, bilateral inguinal hernia repairs, L elbow ulnar nerve moved and bone scraped, L wrist carpal tunnel release, surgery for dupuytrens L hand, 2004 or 2005 cardiac cath-normal in [place], Past Anesthesia/Blood Transfusion Reactions: Postoperative Nausea & Vomiting ( PONV) Additional Past Anesthesia/Blood Transfusion Reaction / Comment(s): PONV after blepharoplasty. Past Psychological History: No Psychological Hx Reported Additional Psychological History / Comment(s): Pt resides in [place]. He flew to [place] on Saturday, April 15, 2017 to visit family. He is a [place] . He served in the [employer]. He is independent. He occasionally uses a cane to ambulate. Smoking Status: Former smoker Past Alcohol Use History: Occasional Additional Past Alcohol Use History / Comment(s): Pt states he started smoking in 9 and quit in 1991. He drinks a cocktail at night. Past Drug Use History: None Reported - Past Family History Father Family Medical History: Cancer, Musculoskeletal Disorder, Neurologic Disorder Additional Family Medical History / Comment(s): Father had parkinson's disease. He at the age of 72 yrs from cancer in his bones. Mother Family Medical History: Cancer Additional Family Medical History / Comment(s): Mother of pancreatic cancer at the age of 67 or 68yrs. Medications and Allergies Home Medications Medication Instructions Recorded Confirmed Type Ibuprofen [Advil] 400 mg PO Q6HR PRN 04/18/17 04/20/17 History Allergies Allergy/AdvReac Type Severity Reaction Status Date / Time povidone-iodine Allergy Anaphylaxis Verified 04/20/17 19:13 [From Betadine] soap [From Betadine] Allergy Anaphylaxis Verified 04/20/17 19:13 Physical Examination - Vital Signs Vital Signs: Vital Signs Temp Pulse Pulse Resp BP BP Pulse Ox 04/21/17 07:00 96.6 F L 94 18 159/92 90 L 04/21/17 01:40 97.1 F L 04/20/17 21:28 96.0 F L 73 18 141/75 97 04/20/17 20:53 96.8 F L 85 16 151/83 100 04/20/17 18:28 97 F L 85 18 132/88 97 Intake and Output 04/20/17 04/21/17 04/21/17 22:59 06:59 14:59 Output Total 650 550 Balance -650 -550 Output: Urine 650 550 Other: Weight 99.337 kg - Constitutional General appearance: average body habitus, cooperative - EENT EENT: PERRL - Respiratory Respiratory: lungs clear, normal breath sounds - Cardiovascular Cardiovascular: regular rate, normal S1, normal S2 Extremities: no peripheral edema bilaterally - Gastrointestinal Gastrointestinal: normoactive bowel sounds - Integumentary Integumentary: normal - Neurologic Cranial nerve examination: PERRL, EOMI, VFF, V1/V2/V3 grossly intact, face symmetric, tongue midline, intact gag reflex, intact corneal reflex, normal palatal elevation Speech examination: intact Sensorimotor examination: intact Motor examination - right side: 4/5: biceps, triceps, wrist flexion, wrist extension, business technology professor, hip flexors, knee extensors, dorsiflexion, toe extension (EHL) , plantarflexion Motor examination - left side: 4/5: biceps, triceps, wrist flexion, wrist extension, business technology professor, hip flexors, knee extensors, dorsiflexion, toe extension (EHL) , plantarflexion Detailed sensory examination: intact Reflex and gait examination: intact Reflexes: 1+: ankle, bicep, knee, tricep - Musculoskeletal Musculoskeletal: no pain - Psychiatric Psychiatric: mood/affect appropriate, cooperative Results - Laboratory Findings CBC and BMP: 04/21/17 08:30 04/21/17 08:30 Abnormal Lab Findings: Abnormal Labs 04/20/17 04/20/17 04/20/17 19:23 19:23 19:30 WBC 11.6 H Neutrophils # 8.5 H AST 72 H ALT 93 H Urine Protein Trace H Urine Ketones 1+ H Assessment and Plan (1) Cervical spondylosis Status: Acute Code(s): M47.812 - SPONDYLOSIS W/O MYELOPATHY OR RADICULOPATHY, CERVICAL REGION (2) Thoracic back sprain Status: Acute Code(s): S23.9XXA - SPRAIN OF UNSPECIFIED PARTS OF THORAX, INITIAL ENCOUNTER (3) Intractable back pain Status: Acute Code(s): M54.9 - DORSALGIA, UNSPECIFIED (4) Diverticulitis Status: Acute Code(s): K57.92 - DVTRCLI OF INTEST, PART UNSP, W/O PERF OR ABSCESS W/O BLEED (5) Paresthesia Status: Acute Code(s): R20.2 - PARESTHESIA OF SKIN Plan: This patient is a 67-year-old male was admitted to hospital with multiple complex medical complaints and symptoms. Patient was just recently discharged from Hospital after being diagnosed and treated for diverticulitis last week. He was in the hospital and was undergoing a echocardiogram of the heart this past Monday and apparently while transferring onto the table he strained his back. Patient states the help desk technician rolled him to the side and he could hear something snap and give way in his back. Since that time he is complaining of intractable thoracic back pain. For this reason he was brought back to the emergency room and was admitted to the hospital yesterday. He continues to complain of intractable back pain in the midthoracic region. We are recommending further investigation to include MRI of the thoracic and cervical spine. Would also recommend MRI of the brain to rule out demyelinating disease. We will continue to monitor his condition closely. Would strongly recommend orthopedic spine surgery consultation for further evaluation of his intractable back pain. He does have evidence on computed tomography scan of the cervical spine of cervical spondylosis. This should be further evaluated with his MRI study. His overall prognosis at this time remains very guarded. We will continue to follow his progress closely during this admission. Time with Patient: Greater than 30
[2017-04-21] MEDS ORDERED: ENALAPRILAT 1.25 MG/ML 1 ML VIAL IVP PRN (15:41)
[2017-04-21] MEDS: ONDANSETRON 4 MG/2 ML VIAL IVP PRN (17:13)
[2017-04-21] MEDS: LEVOFLOXACIN 500MG-D5W PMX 500 MG in DEXTROSE/WATER 1 100ML.BAG IVPB SCH (20:26)
--- NOTE | 2017-04-21 21:59 | MR ---
EXAMINATION TYPE: MR cervical spine wo con DATE OF EXAM: 04/21/2017 5:25 PM COMPARISON: NONE HISTORY: intractable back pain, paresthesia with arm and leg pain Multiplanar MultiSpin echo imaging of the cervical spine was performed. Comparison: none C2-C3: No evidence for degenerative disc disease. No disc bulge/herniation or protrusion. No Canal stenosis. Foramina are patent bilaterally. C3-C4: No evidence for degenerative disc disease. No disc bulge/herniation or protrusion. No Canal stenosis. Foramina are patent bilaterally. C4-C5: Moderate disc desiccation. Large right paracentral disc herniation with encapsulating spur res ulting in hard disc. There is resultant right lateral ventral cord contact with moderate central sten osis. Severe right foraminal encroachment with moderate left-sided foraminal encroachment identified. No evidence for compressive myelopathy this time. C5-C6: Moderate disc desiccation. Large right paracentral disc herniation with encapsulating spur res ulting in hard disc. There is resultant right lateral ventral cord contact with moderate central sten osis. Severe right foraminal encroachment with moderate left-sided foraminal encroachment identified. No evidence for compressive myelopathy this time. C6-C7: Moderate disc desiccation. Moderate left paracentral disc bulge with encapsulating spur result ing in disc endplate complex. Left lateral recess stenosis and severe left foraminal encroachment. Mo derate right-sided encroachment. Borderline to mild central stenosis identified. C7-T1: Mild disc desiccation. Circumferential disc bulge greatest posteriorly. Mild effacement of the ventral thecal sac. No herniation or central stenosis. Bilateral foraminal encroachment right greate r than left. Cervical segments are intact. Ventral spondylosis identified. Degenerative endplate marrow changes se en. There is normal alignment. Cervical spinal cord is of normal signal. Craniovertebral junction r elationships are within normal limits. IMPRESSION: 1. Multilevel degenerative disc disease. 2. Large disc endplate complex at C4-5, C5-6 and C6-7 as discussed above. Central stenosis as noted. Multilevel foraminal encroachment.
[2017-04-22] MEDS: metroNIDAZOLE-NS PMX 500 MG in SALINE 1 100ML.BAG IVPB SCH ×3 (00:24→15:52)
[2017-04-22] MEDS: HYDROcodone/APAP 5-325MG 1 EACH TAB PO PRN (00:24)
[2017-04-22] MEDS: LORazepam 2 MG/ML SYRINGE IV PRN ×3 (00:24→22:33)
[2017-04-22] MEDS: HYDROmorphone 1 MG/ML 1 ML SYRINGE IV PRN ×5 (05:35→19:44)
[2017-04-22] MEDS: FAMOTIDINE 20 MG TAB PO SCH ×2 (11:07→22:33)
--- NOTE | 2017-04-22 12:11 | P.CONS ---
History of Present Illness - Reason for Consult Consult date: 04/22/17 - History of Present Illness This is the initial consultation, the 67 years old male, with a complaint of intractable neck pain and back pain , he reported that the pain started a few days ago, when they tried to position him to do echocardiogram, during position him he heard a snap back, and immediately he felt severe back pain, and neck pain and low back pain, associated with some numbness and tingling sensation, also is complaining of paresthesia in the upper and lower extremity, reports some weakness in the upper and lower extremities,he is able to ambulate on his own using cane, he denies any fever or night sweats Past Medical History Past Medical History: Asthma, Fibromyalgia, GERD/Reflux, Hyperlipidemia, Osteoarthritis (OA), Pneumonia Additional Past Medical History / Comment(s): agent orange exposure/ complications, connective tissue disease-undifferentiated, leg weakness, neuropathy bilateral feet, arthritis multiple joints, stomach inflamation, cholesterol alittle elevated but not on rx for it yet-watching diet, fibromyalgia, muscle spasms, colon polyps-benign, asthma-remote, History of Any Multi-Drug Resistant Organisms: None Reported Past Surgical History: Hernia Repair, Orthopedic Surgery Additional Past Surgical History / Comment(s): Surgery for Schatzki ring 3 weeks ago, EGD/colonoscopy with benign polyps removed, vein bundle in back of throat removed, bilateral blepharoplasty, bilateral inguinal hernia repairs, L elbow ulnar nerve moved and bone scraped, L wrist carpal tunnel release, surgery for dupuytrens L hand, 2004 or 2005 cardiac cath-normal in [place], Past Anesthesia/Blood Transfusion Reactions: Postoperative Nausea & Vomiting ( PONV) Additional Past Anesthesia/Blood Transfusion Reaction / Comm: PONV after blepharoplasty. Past Psychological History: No Psychological Hx Reported Additional Psychological History / Comment(s): Pt resides in [place]. He flew to [place] on Monday, April 15, 2017 to visit family. He is a [place] . He served in the [employer]. He is independent. He occasionally uses a cane to ambulate. Smoking Status: Former smoker Past Alcohol Use History: Occasional Additional Past Alcohol Use History / Comment(s): Pt states he started smoking in 1959 and quit in 1991. He drinks a cocktail at night. Past Drug Use History: None Reported - Past Family History Father Family Medical History: Cancer, Musculoskeletal Disorder, Neurologic Disorder Additional Family Medical History / Comment(s): Father had parkinson's disease. He at the age of 72 yrs from cancer in his bones. Mother Family Medical History: Cancer Additional Family Medical History / Comment(s): Mother of pancreatic cancer at the age of 67 or 68yrs. Medications and Allergies Home Medications Medication Instructions Recorded Confirmed Type Ibuprofen [Advil] 400 mg PO Q6HR PRN 04/18/17 04/20/17 History Allergies Allergy/AdvReac Type Severity Reaction Status Date / Time povidone-iodine Allergy Anaphylaxis Verified 04/20/17 19:13 [From Betadine] soap [From Betadine] Allergy Anaphylaxis Verified 04/20/17 19:13 Physical Exam Vitals: Vital Signs Temp Pulse Pulse Resp BP Pulse Ox 04/22/17 08:00 79 79 16 04/22/17 07:00 97.8 F 79 16 152/105 92 L 04/21/17 23:00 97.6 F 86 16 140/90 93 L 04/21/17 17:43 79 155/95 04/21/17 16:00 12 04/21/17 15:46 70 154/86 04/21/17 15:29 81 175/102 04/21/17 15:00 96.2 F L 79 16 181/111 93 L Intake and Output 04/21/17 04/22/17 04/22/17 22:59 06:59 14:59 Other: Voiding Method Toilet Toilet # Voids 1 1 Social history : former smoker , occasional ETOH , NO Illegal drugs use . Family history : positive for cancer Physical Examinations : 1-Constitutional : Cooperative , not in acute distress . 2-HEENT : nech ; supple , no Lymphadenopathy , no Thyromegaly , :eyes , no icterus, no photophobia . ENT : , normal oropharynx , no Thrush 3- Respiratory : Chest clear to auscultations Bilaterally , no wheezing . 4- Cardiovascular : regular rate and rhythem , S1 , S2 , no S3 , no S4. 5- Gastrointestinal: abdomen soft no tenderness , no organomegally . 6- Genitourinary : Defferred . 7-Integumentary : No cellulitis , no ulcers , normal skin turgor , no cyanotic . 8- neurologic : Cranial nerve II to XII intact , no focal neurological deffecit 9-psychatric : alert , oriented X 3 , appropriate affect , intact judgment and insight . 10-Lymphatic : no Lymphadenopathy. 11- musculoskeltal: normal gait Cervical Spine motor stregnth in the deltoid and biceps, 4/5 right side , 4/5 Left side motor stregnth biceps and the wrist extensors 4/5 right side ,4/5 left side . motor stregnth in the triceps muscle . 4 /5 Right side , 4/5 Left side deep tendon reflexes 4/5 at the biceps , 4/5 at Brachioradialis , 4/5 at triceps. positive cervical facet loading test . decreased neck extension The sensation at the medial aspect of upper extremity from forearms to the wrist . Lumber spine moter stegnth lower extremities ,thigh and legs 5/5 Right side , 5/5 Left side deep tendon reflexes : normal Knee Jerk , normal ankle Jerk positive lumber facet Loading Test Range of motion of the lumbar spine Flexion 30 degrees, extension 10 degrees strait leg raising test , positive at 30 degree Fabere test positive RT and positive LT . Ulcerative dysesthesia below the knee bilaterally Multiple trigger point in the thoracic paravertebral muscles Results CBC & Chem 7: 04/21/17 08:30 04/21/17 08:30 Labs: Microbiology - Last 24 Hours (Table) 04/20/17 19:23 Blood Culture - Preliminary Blood No Growth after 24 hours Comments: MRI of the cervical spine= cervical spondylosis, cervical degenerative disc diseasevical , cervical spinal stenosis . Right of the lumbar spine= pending Assessment and Plan Plan: Assessment and plan=1- neck pain and upper extremity numbness secondary to cervical spondylosis cervical degenerative disc disease and spinal stenosis 2- Low back pain and lower extremity numbness and tingling sensation secondary to multilevel degenerative disc disease and clinical symptoms of lumbar spinal stenosis. 3-myofascial pain thoracic area. Recommend to continue Flexeril 10 mg 3 times a day , increase [place] to 7.5/320 5X hours when necessary, start patient on Neurontin 200 mg 3 times a day , if the conservative treatment failed ,then will proced with interventional pain management Time with Patient: Greater than 30
[2017-04-22] MEDS: GABAPENTIN 100 MG CAP PO SCH ×3 (12:15→22:34)
--- NOTE | 2017-04-22 13:34 | MR ---
EXAMINATION TYPE: MR lumbar spine wo/w con DATE OF EXAM: 04/22/2017 COMPARISON: NONE HISTORY: TECHNIQUE: Multiplanar, multisequence images of the lumbar spine were acquired utilizing 20 mL intravenous gadol inium contrast. Findings The lumbar vertebra have fairly normal alignment. There is narrowing and decreased signal in the disk s throughout the lumbar spine and more noticeable at L2-3. There is hypertrophic mild spurring of the endplates. Lumbar nerve roots appear normal. There is narrowing of the neural foramen at L4-5 on the left side. There is mild multilevel hypertrophic facet arthropathy. There is small posterior L5-S1 d isc herniation centrally and towards the left side. The sacroiliac joints appear intact. There is no paraspinal mass. There is no compression fracture. I see no pathologic enhancement. IMPRESSION: Multilevel spondylosis. No significant spinal stenosis. Small posterior central and left-sided L5-S1 disc herniation. No fracture. Small posterior disc bulging from L1 to L5 without significant encroach ment on the spinal canal.
--- NOTE | 2017-04-22 15:19 | HP ---
DATE OF SERVICE: 04/20/2017 CHIEF COMPLAINT: [age] white male with multiple complaints, including acute diverticulitis and left lower quadrant abdominal pain; but mostly he has pain over his entire back area; upper and lower extremities with some numbness. Denies bowel or bladder ( ) or incontinence. He has some numbness and tingling around his upper extremities. Lower extremities ( ). Some pain in his lower abdomen. No fever or chills. ALLERGIES: IBUPROFEN, IODINE, SOAP. Fourteen-point review of systems negative except as mentioned in the HPI. PAST MEDICAL HISTORY: 1. Fibromyalgia. 2. GERD. 3. Dyslipidemia. 4. Osteoarthritis. 5. Pneumonia. 6. ( ) multiple chronic leg weakness, neuropathy secondary to this. 7. History of benign colon polyps. 8. Asthma. 9. Muscle spasm. PAST SURGICAL HISTORY: 1. Hernia repair. 2. Orthopedic surgery. 3. Surgery for his Schatzki ring 3 weeks ago. 4. EGD. 5. Benign polyps. 6. Inguinal hernia repair. 7. Left elbow ulnar nerve repair. 8. Left carpal tunnel. 9. Surgeries ( ) left hand. 10. ( ) blepharoplasty. FAMILY HISTORY: Father had cancer, neurologic, musculoskeletal disorder. Mother with cancer, being cured of cancer. PHYSICAL EXAM: Temperature 97, pulse 88, respiration 12 to 18, blood pressure 130s over 80. Oxygen 97% on room air. HEENT: Normocephalic, atraumatic. Obese white male. BMI is over 30. Lungs are clear. CARDIAC: Regular rate and rhythm. GI: Soft. Some mild tenderness in the left lower quadrant. No guarding. No rebound. MUSCULOSKELETAL: Tender to palpation, cervical, lumbar, thoracic muscles. Squirms in excruciating pain with turning. NEUROLOGIC: Alert and oriented x3. SKIN: Warm, dry, intact. PSYCH: Fair mood and affect. LABS: White count 11.6, hemoglobin 16.9. ASSESSMENT: 1. Acute diverticulitis. 2. Back pain. 3. Paresthesias. PLAN: Await neurology consult. MRI of the cervical and lumbar spine will be done. Clear liquid diet. Diverticulitis diet will be advanced as he improves clinically. [facility]
--- NOTE | 2017-04-22 16:54 | P.PN ---
Subjective This patient is a 67-year-old male who had been admitted with multiple complaints of back pain and intractable thoracic pain. Apparently his symptoms began last week when he was hospitalized for treatment of diverticulitis. He was on a gurney and apparently turned a certain way and snapped his back. He has been complaining of severe back pain mostly in the thoracic level. He was admitted to hospital for further evaluation due to the severity of the pain. Patient underwent MRI of the brain which failed to reveal any evidence of acute change. He underwent MRI of the lumbar spine which revealed multiple level spondylosis. No significant spinal stenosis was noted. Small posterior central and left sided L5-S1 disc herniation was noted. No fractures. Small posterior disc bulge at L1 to L5 levels without significant encroachment on the spinal canal was reported. Patient was seen by pain management today. They're recommending Flexeril and Narco for further management. He is also be started on Neurontin. We will have to given few days of this treatment to see if he is responding. He continues to complain of myofascial pain in the thoracic area. We have recommended MRI of the thoracic spine to be done. If the patient fails conservative management with pain control he may proceed with more interventional pain management. Will follow further recommendations from the pain management staff. It is unclear whether the patient went down for MRI of the thoracic spine today. We have spoken to the nursing staff on the floor and have indicated that the MRI of thoracic spine should be done as soon as possible. The patient states he is feeling somewhat better but still complains of pain. We will continue to monitor further recommendations from pain management and will await their further input. His overall condition remains guarded. We will continue close neurological follow-up for him. Objective - Vital Signs Vital signs: Vital Signs Temp 97.8 F 04/22/17 07:00 Pulse 79 04/22/17 08:00 Resp 16 04/22/17 08:00 BP 152/105 04/22/17 07:00 Pulse Ox 92 L 04/22/17 07:00 Intake & Output 04/21/17 04/22/17 04/22/17 18:59 06:59 18:59 Output Total 1150 Balance -1150 Weight 99.337 kg Output: Urine 1150 Other: Voiding Method Toilet Toilet Toilet # Voids 1 1 # Bowel Movements 0 - Exam Physical examination: PHYSICAL EXAMINATION: Patient is resting comfortably in bed. VITAL SIGNS: Blood pressure is [122/81]. Heart rate is [100]. Respiration is [16 ]. Temperature is [97.0]. HEENT: Head is atraumatic, neck is supple, there were no carotid bruits. CHEST: Lungs are clear to auscultation and percussion. CARDIAC: S1, S2 normal rate and rhythm. There is no murmur. ABDOMEN: Soft and nontender. Bowel sounds are present. EXTREMITIES: There is no pedal edema. Peripheral pulses are present. Neurological examination: Patient's neurological examination is unchanged from initial evaluation. - Labs CBC & Chem 7: 04/21/17 08:30 04/21/17 08:30 Labs: Microbiology - Last 24 Hours (Table) 04/20/17 19:23 Blood Culture - Preliminary Blood No Growth after 24 hours Assessment and Plan (1) Cervical spondylosis Status: Acute Code(s): M47.812 - SPONDYLOSIS W/O MYELOPATHY OR RADICULOPATHY, CERVICAL REGION (2) Thoracic back sprain Status: Acute Code(s): S23.9XXA - SPRAIN OF UNSPECIFIED PARTS OF THORAX, INITIAL ENCOUNTER (3) Intractable back pain Status: Acute Code(s): M54.9 - DORSALGIA, UNSPECIFIED (4) Diverticulitis Status: Acute Code(s): K57.92 - DVTRCLI OF INTEST, PART UNSP, W/O PERF OR ABSCESS W/O BLEED (5) Paresthesia Status: Acute Code(s): R20.2 - PARESTHESIA OF SKIN Plan: This patient is a 67-year-old male was admitted to hospital with multiple complex medical complaints and symptoms. Patient was just recently discharged from Hospital after being diagnosed and treated for diverticulitis last week. He was in the hospital and was undergoing a echocardiogram of the heart this past Monday and apparently while transferring onto the table he strained his back. Patient states the diamond powder technician rolled him to the side and he could hear something snap and give way in his back. Since that time he is complaining of intractable thoracic back pain. For this reason he was brought back to the emergency room and was admitted to the hospital yesterday. He continues to complain of intractable back pain in the midthoracic region. We are recommending further investigation to include MRI of the thoracic and cervical spine. Would also recommend MRI of the brain to rule out demyelinating disease. We will continue to monitor his condition closely. Would strongly recommend orthopedic spine surgery consultation for further evaluation of his intractable back pain. He does have evidence on computed tomography scan of the cervical spine of cervical spondylosis. Patient was seen by pain management today. We have noted the recommendations. We will continue close monitoring of his condition. We are still awaiting MRI of the thoracic spine to be completed as this is his area of myofascial pain. Pain management is recommended conservative management with medications. He may require further interventional pain management if he fails conservative line of therapy. His overall prognosis at this time remains very guarded. We will continue to follow his progress closely during this admission.
[2017-04-22] MEDS: HYDROcodone/APAP 7.5-325MG 1 EACH TAB PO PRN (18:56)
[2017-04-22] MEDS: LEVOFLOXACIN 500MG-D5W PMX 500 MG in DEXTROSE/WATER 1 100ML.BAG IVPB SCH (19:44)
[2017-04-23] MEDS: HYDROmorphone 1 MG/ML 1 ML SYRINGE IV PRN ×3 (00:02→06:36)
[2017-04-23] MEDS: metroNIDAZOLE-NS PMX 500 MG in SALINE 1 100ML.BAG IVPB SCH ×4 (00:05→23:01)
[2017-04-23] MEDS: ONDANSETRON 4 MG/2 ML VIAL IVP PRN (01:38)
[2017-04-23] MEDS: HYDROcodone/APAP 7.5-325MG 1 EACH TAB PO PRN ×4 (01:45→22:07)
[2017-04-23] MEDS: GABAPENTIN 100 MG CAP PO SCH ×3 (09:27→20:59)
[2017-04-23] MEDS: CYCLOBENZAPRINE 10 MG TAB PO PRN ×2 (09:27→22:07)
[2017-04-23] MEDS: FAMOTIDINE 20 MG TAB PO SCH ×2 (09:27→20:58)
--- NOTE | 2017-04-23 12:13 | PN ---
SUBJECTIVE: 67 year old white male admitted with diverticulitis, cervical and lumbar disc disease, epidural ( ) cervical and lumbar spine are pending. Diet will be slowly increased. Await for epidural shots on Monday. Cardiovascular: S1, S2. Lungs are clear. GI is increased bowel sounds. Musculoskeletal: Cervical and lumbar tenderness. ASSESSMENT AND PLAN: 1. Acute diverticulitis, improving. 2. Lumbar disc disease, cervical disc disease. 3. Myofascial disease. 4. Agent orange exposure. 5. Epidural cervical and lumbar spine. 6. Increase diet. 7. Continue in the next 24 to 48 hours epidural shots. MTDD
[2017-04-23] MEDS ORDERED: RX INFO: IV CONTRAST WAS GIVEN 1 EACH MISC MISCELLANE PRN (12:39)
[2017-04-23] MEDS ORDERED: diphenhydrAMINE 50 MG/ML 1 ML VIAL IVP STA (12:55)
[2017-04-23] MEDS ORDERED: methylPREDNISolone SOD SUCCI 125 MG/2 ML VIAL IV STA (12:55)
[2017-04-23] MEDS ORDERED: FAMOTIDINE 20 MG/2 ML VIAL IV STA (12:55)
--- NOTE | 2017-04-23 14:26 | CT ---
EXAMINATION TYPE: CT chest angio for PE DATE OF EXAM: 04/23/2017 COMPARISON: NONE HISTORY: Patient complains of chest pain and difficulty breathing. CT DLP: 396.6 mGycm Automated exposure control for dose reduction was used. CONTRAST: CT Chest for pulmonary embolism performed with with IV Contrast, patient injected with 100 mL of Omni paque 350. There are 3-D post processed images. FINDINGS: There are small bilateral pleural effusions. There is patchy infiltrate and atelectasis in both lower lobes. I see no filling defects in the pulmonary arteries. There is no sign of aortic aneurysm or di ssection. The descending thoracic aorta measures up to 3.3 cm. There is no pericardial effusion. Ther e is no mediastinal adenopathy. There are no hilar masses. There is spurring in the thoracic spine. IMPRESSION: Small pleural effusions with basilar pulmonary infiltrates and atelectasis. This could relate to silvino estive heart failure. No evidence of pulmonary embolism. Thoracic aorta is upper limits of normal size. No dissection.
--- NOTE | 2017-04-23 14:46 | CONS ---
Demond Guardado is a 67 year old male who presented to the ED by EMS. He has multiple complaints. He had history of chest pain located on the lower part of his chest that radiates to his back. He has an occasional cough and had been having some abdominal pain. He was thought to have diverticulitis. He continues to have shortness of breath at this time. Past medical history is positive for asthma, fibromyalgia, gastroesophageal reflux disease, hyperlipidemia, osteoarthritis, pneumonia, agent orange exposure , connective tissue disease, neuropathy. Surgery for Schatzki's ring. EGD with colonoscopy, inguinal hernia surgery bilaterally, Dupuytren's contracture release of the left hand, ulnar surgery of the left upper extremity. Family history is positive for musculoskeletal and neurological disorder in the form of Parkinson's disease in his father, cancer in his bones in his fathers and mother had history of pancreatic cancer. THE PATIENT IS ALLERGIC TO BETADINE. Meds were reviewed. On physical examination, his respiratory rate is 12. Pulse rate 92. Temperature 97. O2 sat on room air is 94%. Blood pressure 126/86. HEENT unremarkable. Chest reveals decreased breath sounds at the bases. No clear wheeze. Cardiovascular system reveals an S1, S2. Abdomen is soft. There is no pedal edema. White count 10.3. Hemoglobin 15.4. Sodium 135. Potassium 4. Chloride 100. Bicarb 25. BUN 14, creatinine 0.71. AST 45, ALT 76. Total bilirubin 0.7. IMPRESSION: 1. Acute diverticulitis. 2. Chest pain with shortness of breath, etiology which is unclear. 3. Chronic pain. At this point in time from a pulmonary standpoint, at this time the differential for dyspnea would be pulmonary embolus but also mild fluid overload or congestive heart failure. As far as asthma is concerned, it seems to be fairly stable. Would check a CT scan of the chest with contrast and decide on further treatment. Would continue antibiotics. Add DVT prophylaxis at least until the CT scan is done. Then decide if it would need to continue versus more aggressive anticoagulation. MTDD
--- NOTE | 2017-04-23 17:34 | P.PN ---
Subjective This patient is a 67-year-old male who had been admitted with multiple complaints of back pain and intractable thoracic pain. Apparently his symptoms began last week when he was hospitalized for treatment of diverticulitis. He was on a gurney and apparently turned a certain way and snapped his back. He has been complaining of severe back pain mostly in the thoracic level. He was admitted to hospital for further evaluation due to the severity of the pain. Patient underwent MRI of the brain which failed to reveal any evidence of acute change. He underwent MRI of the lumbar spine which revealed multiple level spondylosis. No significant spinal stenosis was noted. Small posterior central and left sided L5-S1 disc herniation was noted. No fractures. Small posterior disc bulge at L1 to L5 levels without significant encroachment on the spinal canal was reported. Patient was seen by pain management today. They're recommending Flexeril and Narco for further management. He is also be started on Neurontin. We will have to given few days of this treatment to see if he is responding. He continues to complain of myofascial pain in the thoracic area. We have recommended MRI of the thoracic spine to be done. If the patient fails conservative management with pain control he may proceed with more interventional pain management. Will follow further recommendations from the pain management staff. It is unclear whether the patient went down for MRI of the thoracic spine today. We have spoken to the nursing staff on the floor and have indicated that the MRI of thoracic spine should be done as soon as possible. The patient states he is feeling somewhat better but still complains of pain. We will continue to monitor further recommendations from pain management and will await their further input. The patient had evidence of some shortness of breath with some desaturation and his oxygen saturation was low. He did receive some narcotic pain medications which may contributed to this finding. For this reason he was sent for a CTA angiogram this morning. Patient underwent CTA angiogram of the chest which came back negative for any evidence of pulmonary embolism or thoracic aneurysm. His overall condition remains guarded. We will continue close neurological follow-up for him. Objective - Vital Signs Vital signs: Vital Signs Temp 97.0 F L 04/23/17 06:40 Pulse 92 04/23/17 06:56 Resp 20 04/23/17 07:15 BP 126/86 04/23/17 06:56 Pulse Ox 94 L 04/23/17 08:13 Intake & Output 04/22/17 04/23/17 04/23/17 18:59 06:59 18:59 Output Total 600 250 Balance -600 -250 Weight 99.337 kg Output: Urine 600 250 Other: Voiding Method Toilet # Voids 2 1 # Bowel Movements 0 0 - Exam Physical examination: PHYSICAL EXAMINATION: Patient is resting comfortably in bed. VITAL SIGNS: Blood pressure is [126/86]. Heart rate is [92]. Respiration is [14] . Temperature is [97.0]. HEENT: Head is atraumatic, neck is supple, there were no carotid bruits. CHEST: Lungs are clear to auscultation and percussion. CARDIAC: S1, S2 normal rate and rhythm. There is no murmur. ABDOMEN: Soft and nontender. Bowel sounds are present. EXTREMITIES: There is no pedal edema. Peripheral pulses are present. Neurological examination: Patient's neurological examination is unchanged from initial evaluation. - Labs CBC & Chem 7: 04/21/17 08:30 04/21/17 08:30 Labs: Microbiology - Last 24 Hours (Table) 04/20/17 19:23 Blood Culture - Preliminary Blood No Growth after 48 hours Assessment and Plan (1) Cervical spondylosis Status: Acute Code(s): M47.812 - SPONDYLOSIS W/O MYELOPATHY OR RADICULOPATHY, CERVICAL REGION (2) Thoracic back sprain Status: Acute Code(s): S23.9XXA - SPRAIN OF UNSPECIFIED PARTS OF THORAX, INITIAL ENCOUNTER (3) Intractable back pain Status: Acute Code(s): M54.9 - DORSALGIA, UNSPECIFIED (4) Diverticulitis Status: Acute Code(s): K57.92 - DVTRCLI OF INTEST, PART UNSP, W/O PERF OR ABSCESS W/O BLEED (5) Paresthesia Status: Acute Code(s): R20.2 - PARESTHESIA OF SKIN Plan: This patient is a 67-year-old male was admitted to hospital with multiple complex medical complaints and symptoms. Patient was just recently discharged from Hospital after being diagnosed and treated for diverticulitis last week. He was in the hospital and was undergoing a echocardiogram of the heart this past Monday and apparently while transferring onto the table he strained his back. Patient states the nuclear engineering technician rolled him to the side and he could hear something snap and give way in his back. Since that time he is complaining of intractable thoracic back pain. For this reason he was brought back to the emergency room and was admitted to the hospital yesterday. He continues to complain of intractable back pain in the midthoracic region. We are recommending further investigation to include MRI of the thoracic and cervical spine. Would also recommend MRI of the brain to rule out demyelinating disease. We will continue to monitor his condition closely. Would strongly recommend orthopedic spine surgery consultation for further evaluation of his intractable back pain. He does have evidence on computed tomography scan of the cervical spine of cervical spondylosis. Patient was seen by pain management today. We have noted the recommendations. We will continue close monitoring of his condition. We are still awaiting MRI of the thoracic spine to be completed as this is his area of myofascial pain. Pain management is recommended conservative management with medications. Patient was able to have an EEG today and this will be reviewed. He continues to have diffuse pain symptoms and may require further pain management intervention. He underwent a CTA angiogram of the chest which was negative for pulmonary embolus. No evidence of thoracic aneurysm. He may require further interventional pain management if he fails conservative line of therapy. His overall prognosis at this time remains very guarded. We will continue to follow his progress closely during this admission.
[2017-04-23] MEDS: LEVOFLOXACIN 500MG-D5W PMX 500 MG in DEXTROSE/WATER 1 100ML.BAG IVPB SCH (20:58)
[2017-04-23] MEDS: HEPARIN SODIUM,PORCINE 5,000 UNIT/ML 1 ML VIAL SQ SCH (20:59)
[2017-04-23 21:10] LABS: Glucose,Whole Blood 136 mg/dL (75-99)
--- NOTE | 2017-04-24 08:00 | P.PN ---
Progress Note - Text The patient was seen this morning. It looks like he has very mild neck and lower back pain and it looks like that his main complaint is abdominal pain that is due to diverticulitis. The MRI on the cervical spine showed multiple levels of degeneration and neuroforaminal stenosis however the lumbar spine MRI showed only mild degenerative changes. At This point I do not think the patient needs any injections on the spine however I told the patient that if he gets any neck and lower back pain he might need to consult our pain clinic in the future as an outpatient. He does have tingling in both hands however he denies any paresthesia in the lower extremities. Continue the same oral analgesics for now. We will sign off and I thank you for the consultation.
[2017-04-24] MEDS: HEPARIN SODIUM,PORCINE 5,000 UNIT/ML 1 ML VIAL SQ SCH ×2 (08:52→20:20)
[2017-04-24] MEDS: FAMOTIDINE 20 MG TAB PO SCH ×2 (08:52→20:20)
[2017-04-24] MEDS: metroNIDAZOLE-NS PMX 500 MG in SALINE 1 100ML.BAG IVPB SCH (08:52)
[2017-04-24] MEDS: GABAPENTIN 100 MG CAP PO SCH ×3 (08:52→21:16)
[2017-04-24] MEDS: HYDROcodone/APAP 7.5-325MG 1 EACH TAB PO PRN ×2 (08:54→23:49)
--- NOTE | 2017-04-24 12:19 | MR ---
EXAMINATION TYPE: MR thoracic spine wo/w con DATE OF EXAM: 04/24/2017 COMPARISON: NONE HISTORY: Acute thoracic pain mid level CONTRAST: Standard multiplanar, multisequence MRI departmental protocol utilizing 20 mL intravenous MultiHance gadolinium contrast. FINDINGS: There is a 3.2 cm cystic lesion within the upper pole of the left kidney. There is a bilobe d, cystic lesion in the posterior segment of the right lobe of the liver measuring 1.8 x 1.2 cm. Para spinal soft tissues are otherwise unremarkable. There is a mild dextroscoliosis at the cervical thoracic junction. This may, in part, be positional. There is a prominent hemangioma in the T8 vertebral body. Vertebral body height and alignment otherwise maintained. There is minimal degenerative change. No di scal protrusions are seen. The intervertebral foramina are reasonably well-maintained. IMPRESSION: 1. NO SIGNIFICANT COMPRESSIVE DISCOPATHY OR NEURAL COMPRESSION. 2. CYSTIC CHANGE WITHIN THE POSTERIOR SEGMENT OF THE RIGHT LOBE OF THE LIVER WELL THE LEFT KIDN EY. THIS COULD BE FURTHER ASSESSED WITH ULTRASOUND.
--- NOTE | 2017-04-24 13:54 | EEG ---
ELECTROENCEPHALOGRAPHIC REPORT: DATE OF SERVICE: 04/23/2017 INDICATION FOR EXAMINATION: This patient is a 67-year-old male being evaluated for altered mental status and generalized weakness. AGE: 67 EEG FINDINGS: A routine 21 channel awake digital EEG recording was accomplished utilizing the 10 - 20 international system with bipolar and referential montages. The background activity in the most alert resting state consists of a low to medium amplitude, fairly well-developed and well-sustained 6 Hz activity over the posterior head regions. This posterior rhythm attenuates to eye opening. There is a small amount of low amplitude 18 - 20 Hz beta activity seen maximally over the anterior head regions. Muscle and movement artifact was observed on a few occasions during the tracing. Hyperventilation was not performed. Photic stimulation at flash frequencies of 2 - 30 Hz produced a minimal occipital driving response. No epileptiform discharges were seen. IMPRESSION: This EEG is moderately abnormal in a diffuse fashion due to slowing of the EEG background. The EEG failed to reveal any focal, lateralized or epileptiform abnormalities. Clinical correlation is recommended. MARIND
[2017-04-24] MEDS: metroNIDAZOLE 500 MG TAB PO SCH ×2 (15:44→21:16)
[2017-04-24] MEDS: FUROSEMIDE 10 MG/ML 4 ML VIAL IV STA ×2 (15:44→16:02)
[2017-04-24] MEDS: MAGNESIUM HYDROXIDE 2,400 MG/10 ML CUP PO PRN (17:36)
[2017-04-24] MEDS: LEVOFLOXACIN 500 MG TAB PO SCH (20:20)
--- NOTE | 2017-04-24 21:34 | P.PN ---
Subjective This patient is a 67-year-old male who had been admitted with multiple complaints of back pain and intractable thoracic pain. Apparently his symptoms began last week when he was hospitalized for treatment of diverticulitis. He was on a gurney and apparently turned a certain way and snapped his back. He has been complaining of severe back pain mostly in the thoracic level. He was admitted to hospital for further evaluation due to the severity of the pain. Patient underwent MRI of the brain which failed to reveal any evidence of acute change. He underwent MRI of the lumbar spine which revealed multiple level spondylosis. No significant spinal stenosis was noted. Small posterior central and left sided L5-S1 disc herniation was noted. No fractures. Small posterior disc bulge at L1 to L5 levels without significant encroachment on the spinal canal was reported. Patient was seen by pain management today. They're recommending Flexeril and Narco for further management. He is also be started on Neurontin. We will have to given few days of this treatment to see if he is responding. He continues to complain of myofascial pain in the thoracic area. We have recommended MRI of the thoracic spine to be done. If the patient fails conservative management with pain control he may proceed with more interventional pain management. Will follow further recommendations from the pain management staff. It is unclear whether the patient went down for MRI of the thoracic spine today. We have spoken to the nursing staff on the floor and have indicated that the MRI of thoracic spine should be done as soon as possible. The patient states he is feeling somewhat better but still complains of pain. We will continue to monitor further recommendations from pain management and will await their further input. The patient had evidence of some shortness of breath with some desaturation and his oxygen saturation was low. He did receive some narcotic pain medications which may contributed to this finding. For this reason he was sent for a CTA angiogram this morning. Patient underwent CTA angiogram of the chest which came back negative for any evidence of pulmonary embolism or thoracic aneurysm. His overall condition remains guarded. Patient was able to complete MRI of the thoracic spine today. This MRI came back negative for any evidence of acute disc herniation or fracture. He was seen by pain management today and they're not recommending any injections for the patient at this time. He may follow-up in the pain clinic as needed following discharge. We reviewed all of the results today including his MRI of the thoracic spine with the patient. Would consider subacute rehab if the patient shows slow progress. We will continue close neurological follow-up for him. Objective - Vital Signs Vital signs: Vital Signs Temp 96.9 F L 04/24/17 15:00 Pulse 105 H 04/24/17 15:00 Resp 16 04/24/17 16:00 BP 90/62 04/24/17 15:00 Pulse Ox 94 L 04/24/17 15:00 Intake & Output 04/24/17 04/24/17 04/25/17 06:59 18:59 06:59 Intake Total 800 Output Total 400 Balance 400 Intake: Oral 800 Output: Urine 400 Other: Voiding Method Toilet # Voids 2 3 - Exam Physical examination: PHYSICAL EXAMINATION: Patient is resting comfortably in bed. VITAL SIGNS: Blood pressure is [96/62]. Heart rate is [105]. Respiration is [16] . Temperature is [97.0]. HEENT: Head is atraumatic, neck is supple, there were no carotid bruits. CHEST: Lungs are clear to auscultation and percussion. CARDIAC: S1, S2 normal rate and rhythm. There is no murmur. ABDOMEN: Soft and nontender. Bowel sounds are present. EXTREMITIES: There is no pedal edema. Peripheral pulses are present. Neurological examination: Patient's neurological examination is unchanged from initial evaluation. - Labs CBC & Chem 7: 04/21/17 08:30 04/21/17 08:30 Labs: Microbiology - Last 24 Hours (Table) 04/20/17 19:23 Blood Culture - Preliminary Blood No Growth after 72 hours Assessment and Plan (1) Cervical spondylosis Status: Acute Code(s): M47.812 - SPONDYLOSIS W/O MYELOPATHY OR RADICULOPATHY, CERVICAL REGION (2) Thoracic back sprain Status: Acute Code(s): S23.9XXA - SPRAIN OF UNSPECIFIED PARTS OF THORAX, INITIAL ENCOUNTER (3) Intractable back pain Status: Acute Code(s): M54.9 - DORSALGIA, UNSPECIFIED (4) Diverticulitis Status: Acute Code(s): K57.92 - DVTRCLI OF INTEST, PART UNSP, W/O PERF OR ABSCESS W/O BLEED (5) Paresthesia Status: Acute Code(s): R20.2 - PARESTHESIA OF SKIN Plan: This patient is a 67-year-old male was admitted to hospital with multiple complex medical complaints and symptoms. Patient was just recently discharged from Hospital after being diagnosed and treated for diverticulitis last week. He was in the hospital and was undergoing a echocardiogram of the heart this past Monday and apparently while transferring onto the table he strained his back. Patient states the heat treatment technician rolled him to the side and he could hear something snap and give way in his back. Since that time he is complaining of intractable thoracic back pain. For this reason he was brought back to the emergency room and was admitted to the hospital yesterday. He continues to complain of intractable back pain in the midthoracic region. We are recommending further investigation to include MRI of the thoracic and cervical spine. Would also recommend MRI of the brain to rule out demyelinating disease. We will continue to monitor his condition closely. Would strongly recommend orthopedic spine surgery consultation for further evaluation of his intractable back pain. He does have evidence on computed tomography scan of the cervical spine of cervical spondylosis. Patient was seen by pain management today. We have noted the recommendations. We will continue close monitoring of his condition. We are still awaiting MRI of the thoracic spine to be completed as this is his area of myofascial pain. Pain management is recommended conservative management with medications. Patient was able to have an EEG today and this will be reviewed. He continues to have diffuse pain symptoms and may require further pain management intervention. He underwent a CTA angiogram of the chest which was negative for pulmonary embolus. No evidence of thoracic aneurysm. He may require further interventional pain management if he fails conservative line of therapy. Patient underwent MRI of the thoracic spine today the results of which are noted above. MRI fails to reveal any evidence of acute disc herniation or discopathy. No fractures were noted. Patient was seen by pain management today they're not recommending any injections for the patient at this time. He may follow-up in the pain clinic if symptoms do not improve after discharge. His overall prognosis at this time remains very guarded. We will continue to follow his progress closely during this admission.
--- NOTE | 2017-04-24 23:21 | PN ---
DATE OF SERVICE: 04/24/2017 Patient is a 67-year-old male who is seen lying in bed. He is awake and alert. No complaints at this time. Breathing is about the same. Patient is afebrile, hemodynamically stable, in no acute distress. On physical exam, vitals signs are temperature 96.7, heart rate 90, respiratory rate 16, blood pressure 111/75, oxygen saturation 95% on room air. HEENT: Head is normocephalic, atraumatic. Neck is supple. Trachea is midline. Lungs with slightly diminished breath sounds. No clear rales or wheezes. HEART: S1 and S2 are heard. Not tachycardic. Abdomen is soft. Bowel sounds are heard. EXTREMITIES: No edema. NEUROLOGIC: Patient awake and alert. LABS: No new labs to review. IMAGING: To include thoracic spine MRI shows no significant compressive discopathy or neural compression; cystic change within the posterior segment of the right lobe of the liver as well as the left kidney. This could be further assessed with ultrasound. CT of the chest which was done yesterday shows small bilateral pleural effusions, patchy infiltrate and atelectasis in both lower lobes; no filling defects in the pulmonary arteries; no sign of aortic aneurysm or dissection. Possible congestive heart failure. IMPRESSION AT THIS TIME: 1. Acute diverticulitis. 2. Chest pain with shortness of breath with a component of mild fluid overload. 3. Chronic pain. PLAN: Continue current medications, which have been reviewed. Will give 40 mg of Lasix IV once now. Continue GI and DVT prophylaxis. Will add incentive spirometry and follow patient closely with you, making further changes as necessary. [facility]
[2017-04-25] MEDS: CYCLOBENZAPRINE 10 MG TAB PO PRN ×3 (04:38→20:14)
[2017-04-25] MEDS: HYDROcodone/APAP 7.5-325MG 1 EACH TAB PO PRN ×2 (06:23→18:17)
[2017-04-25] MEDS: FAMOTIDINE 20 MG TAB PO SCH ×2 (08:25→20:14)
[2017-04-25] MEDS: GABAPENTIN 100 MG CAP PO SCH ×3 (08:25→21:26)
[2017-04-25] MEDS: metroNIDAZOLE 500 MG TAB PO SCH ×3 (08:25→21:26)
[2017-04-25] MEDS: HEPARIN SODIUM,PORCINE 5,000 UNIT/ML 1 ML VIAL SQ SCH ×2 (08:26→20:14)
[2017-04-25] MEDS: MAGNESIUM HYDROXIDE 2,400 MG/10 ML CUP PO PRN (08:30)
--- NOTE | 2017-04-25 10:35 | P.PN ---
Progress Note - Text Patient re-evaluated at bedside. Lumbar and thoracic MRIs largely negative and do not explain patient's symptoms of persistent pain and numbness/tingling in his extremities. Patient does have widespread thoracic and lumbar myofascial pain on exam. Will proceed with trigger point injections with steroids today. Without definitive source of pain, it is likely that patient's pain is from an exacerbation of his existing fibromyalgia diagnosis. Patient would benefit most from steroids and less so from opioids. Will leave medication management to primary service and perform procedure today. Excluding procedure time, I spent 30 minutes in the care of this patient in terms of records review and discussion with physicians and nursing staff. Please call back with any further questions.
--- NOTE | 2017-04-25 11:36 | P.PCN ---
Date of Procedure: 04/25/17 Preoperative Diagnosis: Postoperative Diagnosis: Procedure(s) Performed: Implants: Anesthesia: local Surgeon: Tyler Ambriz Pathology: none sent Condition: stable Disposition: PACU Indications for Procedure: Operative Findings: Description of Procedure: PREOPERATIVE DIAGNOSIS: 1-myofascial pain syndrome POSTOPERATIVE DIAGNOSIS: 1-myofascial pain syndrome PROCEDURE 1. Trigger point injections (thoracic, lumbar paraspinal muscles and quadratus lumborum) x 8 ANESTHESIA: Local with 1% lidocaine EBL: Minimal PROCEDURE INDICATION: The patient is a 67-year-old male with a diagnosis of fibromyalgia with intractable mid and low back pain that appears to be muscular in origin. Trigger point injection today; no use of blood thinners. PROCEDURE DESCRIPTION / TECHNIQUE: The patient was seen and identified in his room. Risks, benefits, complications , and alternatives were discussed with the patient, including but not limited to bleeding, infection, nerve damage, allergic reactions to medications, and incomplete pain relief. The patient agreed to proceed with the procedure and signed the consent after all questions were answered. Trigger points were marked prior to entering the procedure room in the places where the patient had severe pain to muscle palpation. Patient was placed in the sitting position on bed. The area over the relevant muscles (thoracic/lumbar paraspinal and right quadratus lumborum) was prepped and draped in the usual sterile fashion. Vital signs were closely monitored during the procedure. Conscious sedation was used during the procedure to decrease patients anxiety. Each of the previously marked areas was then infiltrated with 1% plain lidocaine using a 25g needle. After this, each point was entered with the same 25g needle and after a catch was felt, dry needling was performed. After negative aspiration at each point, 1 ml of a total of 8 ml (combination of 7 ml 0.5% bupivacaine and 40 mg Kenalog was injected in each area. Needle was withdrawn intact each time, skin was cleansed, and bandages were applied. COMPLICATIONS: None COMMENTS: None DISPOSITION / PLANS: The patient was placed in a supine position. There was no evidence of lower extremity motor or sensory deficit after the procedure. The patient was reexamined prior to discharge. The patient will return to the care of the hospitalists.
--- NOTE | 2017-04-25 12:21 | PN ---
SUBJECTIVE: A 67-year-old white male admitted with diverticulitis, intractable nausea, vomiting and he had no further episodes of respiratory distress. He has been stopped off his Dilaudid. MRI of the cervical and lumbar spine are pending. CARDIOVASCULAR: S1, S2. LUNGS: Clear. GI: Tender to palpation, left lower quadrant, no mass or organomegaly. ASSESSMENT: 1. Acute diverticulitis. 2. Left lower quadrant and acute intractable back pain. 3. Chronic muscle spasms. PLAN: Advance diet, possible ( ) trigger point injections and epidurals in the cervical and lumbar spine will be done. Follow up in the next 24 to 48 hours. [facility]
[2017-04-25] MEDS: LEVOFLOXACIN 500 MG TAB PO SCH (20:14)
[2017-04-25] MEDS: LORazepam 2 MG/ML SYRINGE IV PRN (21:27)
[2017-04-25] MEDS: MELATONIN 3 MG TABLET PO PRN (23:45)
--- NOTE | 2017-04-25 23:46 | P.PN ---
Subjective This patient is a 67-year-old male who had been admitted with multiple complaints of back pain and intractable thoracic pain. Apparently his symptoms began last week when he was hospitalized for treatment of diverticulitis. He was on a gurney and apparently turned a certain way and snapped his back. He has been complaining of severe back pain mostly in the thoracic level. He was admitted to hospital for further evaluation due to the severity of the pain. Patient underwent MRI of the brain which failed to reveal any evidence of acute change. He underwent MRI of the lumbar spine which revealed multiple level spondylosis. No significant spinal stenosis was noted. Small posterior central and left sided L5-S1 disc herniation was noted. No fractures. Small posterior disc bulge at L1 to L5 levels without significant encroachment on the spinal canal was reported. Patient was seen by pain management today. They're recommending Flexeril and Narco for further management. He is also be started on Neurontin. We will have to given few days of this treatment to see if he is responding. He continues to complain of myofascial pain in the thoracic area. We have recommended MRI of the thoracic spine to be done. If the patient fails conservative management with pain control he may proceed with more interventional pain management. Will follow further recommendations from the pain management staff. It is unclear whether the patient went down for MRI of the thoracic spine today. We have spoken to the nursing staff on the floor and have indicated that the MRI of thoracic spine should be done as soon as possible. The patient states he is feeling somewhat better but still complains of pain. We will continue to monitor further recommendations from pain management and will await their further input. The patient had evidence of some shortness of breath with some desaturation and his oxygen saturation was low. He did receive some narcotic pain medications which may contributed to this finding. For this reason he was sent for a CTA angiogram this morning. Patient underwent CTA angiogram of the chest which came back negative for any evidence of pulmonary embolism or thoracic aneurysm. His overall condition remains guarded. Patient was able to complete MRI of the thoracic spine today. This MRI came back negative for any evidence of acute disc herniation or fracture. He was seen by pain management today and they are not recommending any injections for the patient at this time. He may follow-up in the pain clinic as needed following discharge. Patient was reevaluated today by pain management. He continues to demonstrate widespread thoracic and lumbar myofascial pain on exam. Pain management is now going to proceed with trigger point injections with steroids today. We reviewed all of the results today including his MRI of the thoracic spine with the patient. Would consider subacute rehab if the patient shows slow progress. We will continue close neurological follow-up for him. Objective - Vital Signs Vital signs: Vital Signs Temp 98.1 F 04/25/17 23:34 Pulse 104 H 04/25/17 23:00 Resp 18 04/25/17 23:00 BP 105/66 04/25/17 23:00 Pulse Ox 95 04/25/17 23:00 Intake & Output 04/25/17 04/25/17 04/26/17 06:59 18:59 06:59 Intake Total 1100 Output Total 600 Balance 500 Weight 99.337 kg Intake: Oral 1100 Output: Urine 600 Other: # Voids 3 3 1 # Bowel Movements 0 - Exam Physical examination: PHYSICAL EXAMINATION: Patient is resting comfortably in bed. VITAL SIGNS: Blood pressure is [105/67]. Heart rate is [104]. Respiration is [18 ]. Temperature is [98.1]. HEENT: Head is atraumatic, neck is supple, there were no carotid bruits. CHEST: Lungs are clear to auscultation and percussion. CARDIAC: S1, S2 normal rate and rhythm. There is no murmur. ABDOMEN: Soft and nontender. Bowel sounds are present. EXTREMITIES: There is no pedal edema. Peripheral pulses are present. Neurological examination: Patient's neurological examination is unchanged from initial evaluation. - Labs CBC & Chem 7: 04/21/17 08:30 04/21/17 08:30 Labs: Microbiology - Last 24 Hours (Table) 04/20/17 19:23 Blood Culture - Preliminary Blood No Growth after 120 hours Assessment and Plan (1) Cervical spondylosis Status: Acute Code(s): M47.812 - SPONDYLOSIS W/O MYELOPATHY OR RADICULOPATHY, CERVICAL REGION (2) Thoracic back sprain Status: Acute Code(s): S23.9XXA - SPRAIN OF UNSPECIFIED PARTS OF THORAX, INITIAL ENCOUNTER (3) Intractable back pain Status: Acute Code(s): M54.9 - DORSALGIA, UNSPECIFIED (4) Diverticulitis Status: Acute Code(s): K57.92 - DVTRCLI OF INTEST, PART UNSP, W/O PERF OR ABSCESS W/O BLEED (5) Paresthesia Status: Acute Code(s): R20.2 - PARESTHESIA OF SKIN Plan: This patient is a 67-year-old male was admitted to hospital with multiple complex medical complaints and symptoms. Patient was just recently discharged from Hospital after being diagnosed and treated for diverticulitis last week. He was in the hospital and was undergoing a echocardiogram of the heart this past Monday and apparently while transferring onto the table he strained his back. Patient states the gis technician rolled him to the side and he could hear something snap and give way in his back. Since that time he is complaining of intractable thoracic back pain. For this reason he was brought back to the emergency room and was admitted to the hospital yesterday. He continues to complain of intractable back pain in the midthoracic region. We are recommending further investigation to include MRI of the thoracic and cervical spine. Would also recommend MRI of the brain to rule out demyelinating disease. We will continue to monitor his condition closely. Would strongly recommend orthopedic spine surgery consultation for further evaluation of his intractable back pain. He does have evidence on computed tomography scan of the cervical spine of cervical spondylosis. Patient was seen by pain management today. We have noted the recommendations. We will continue close monitoring of his condition. We are still awaiting MRI of the thoracic spine to be completed as this is his area of myofascial pain. Pain management is recommended conservative management with medications. Patient was able to have an EEG today and this will be reviewed. He continues to have diffuse pain symptoms and may require further pain management intervention. He underwent a CTA angiogram of the chest which was negative for pulmonary embolus. No evidence of thoracic aneurysm. He may require further interventional pain management if he fails conservative line of therapy. Patient underwent MRI of the thoracic spine today the results of which are noted above. MRI fails to reveal any evidence of acute disc herniation or discopathy. No fractures were noted. Patient was seen by pain management today they were not recommending any injections for the patient at this time. He may follow-up in the pain clinic if symptoms do not improve after discharge. Patient was reevaluated by pain management today. Due to his widespread thoracic and lumbar myofascial pain there proceeded with trigger point injections with steroids today. We will need to continue to follow his progress closely. His overall prognosis at this time remains very guarded. We will continue to follow his progress closely during this admission.
[2017-04-26] MEDS: HYDROcodone/APAP 7.5-325MG 1 EACH TAB PO PRN (04:24)
[2017-04-26] MEDS: LORazepam 2 MG/ML SYRINGE IV PRN (04:24)
[2017-04-26 07:31] VITALS: TEMP 96.6
[2017-04-26] MEDS: metroNIDAZOLE 500 MG TAB PO SCH ×2 (09:12→15:54)
[2017-04-26] MEDS: GABAPENTIN 100 MG CAP PO SCH ×2 (09:12→15:54)
[2017-04-26] MEDS: HEPARIN SODIUM,PORCINE 5,000 UNIT/ML 1 ML VIAL SQ SCH (09:12)
[2017-04-26] MEDS: FAMOTIDINE 20 MG TAB PO SCH (09:12)
--- NOTE | 2017-04-26 09:58 | PN ---
DATE OF SERVICE: 04/25/2017 He is less short of breath and is lying comfortably in bed. He is sleepy but arousable. On physical examination blood pressure is 129/92, respiratory rate of 14, pulse rate 97, temperature 96.3, O2 sat on room air is 94%. HEENT is unremarkable. Chest is clear. Cardiovascular system is S1, S2. Abdomen is soft. There is no edema. IMPRESSION: 1. Acute diverticulitis. 2. Chest pain with shortness of breath with mild fluid overload. 3. Chronic pain. Continue him on his current medications which are reviewed. Increase his activity level. Overall he seems to be doing better. BIB
--- NOTE | 2017-04-26 11:49 | PN ---
SUBJECTIVE: White male status post trigger points in the lumbar and thoracic cervical spine for fibromyalgia by pain clinic today. He states he is in pain from the shots and injections today. His diet is clear liquids to soft. He is still having left lower quadrant abdominal pain. Await surgical recommendations. Possible discharge home in the next 2 to 3 days and get PT, OT movement and maybe get rehab going for him. We will see how he does. BIB
[2017-04-26 14:50] VITALS: BP 118/80; PULSE 103; RESP 18
[2017-04-26] MEDS: LEVOFLOXACIN 500 MG TAB PO SCH (15:54)
== END 2017-04-26 16:34 | disposition home or self-care (01) | DRG 556 ==
LOC: EC 18:18 → 4MS4W 20:21
PROVIDERS: ADMIT Family Medicine; ATTEND Family Medicine
PROC: 3E0233Z Introduction of Anti-inflammatory into Muscle, Percutaneous Approach (ICD-10-PCS; principal; 2017-04-25)
PROC: 3E023BZ Introduction of Anesthetic Agent into Muscle, Percutaneous Approach (ICD-10-PCS; 2017-04-25)
DX: M79.7 Fibromyalgia (principal); K57.92 Diverticulitis of intestine, part unspecified, without perforation or abscess without bleeding; E87.70 Fluid overload, unspecified; M48.02 Spinal stenosis, cervical region; G62.9 Polyneuropathy, unspecified; E78.5 Hyperlipidemia, unspecified; G89.29 Other chronic pain; J45.909 Unspecified asthma, uncomplicated; K21.9 Gastro-esophageal reflux disease without esophagitis; M47.812 Spondylosis without myelopathy or radiculopathy, cervical region; M48.06 Spinal stenosis, lumbar region; M51.27 Other intervertebral disc displacement, lumbosacral region; S23.3XXA Sprain of ligaments of thoracic spine, initial encounter; R20.2 Paresthesia of skin; M15.9 Polyosteoarthritis, unspecified; M51.36 Other intervertebral disc degeneration, lumbar region; M50.30 Other cervical disc degeneration, unspecified cervical region; R10.32 Left lower quadrant pain; Z87.891 Personal history of nicotine dependence; Z88.8 Allergy status to other drugs, medicaments and biological substances
CPT/HCPCS: 36415; 70450; 70551; 71275; 72125; 72141; 72157; 72158; 80053; 81003; 85025; 87040; 95819; 96365; 96366; 99285